=== PATIENT | male | born 1975 | race Caucasian/White ===

== ENCOUNTER 2024-12-11 09:43 | Inpatient (IN) | payer SELFPAY ==
--- NOTE | ~2024-12-11 | US_ITS ---
CLINICAL HISTORY: Bilateral symptomatic hydrocele PROCEDURES: 1. Limited preprocedure US of the scrotum. Permanent images saved in PACS. 2. US-guided drainage of right sided hydrocele. 3. Limited post procedure US of the scrotum. Permanent images saved in PACS. CLINICIANS: Tj Nazario NP Preprocedural imaging reviewed with Mis Nance MD. MEDICATIONS: -Lidocaine 1% 10 mL SQ -Antibiotics: None -For additional details, please see nursing flowsheet. COMPLICATIONS: None ESTIMATED BLOOD LOSS: < 5 ml CONTRAST: None SPECIMENS: A specimen was not sent for culture. MODERATE SEDATION TIME: 0 min PROCEDURE NOTE: The procedure, risks, benefits, and alternatives were carefully explained to the patient and written informed consent was obtained. The patient was placed supine on the US table. A timeout was performed. A limited US of the scrotum was performed to localize the fluid collection and choose appropriate needle entry and trajectory. The patient was prepped and draped in usual sterile fashion. The skin and subcutaneous tissues were anesthetized with lidocaine. Under US guidance, a 21-gauge needle was inserted into the fluid collection. 190 mL of yellow fluid was aspirated. The needle was removed and a sterile dressing was applied. A limited postprocedure ultrasound demonstrated bare to minimal residual fluid. The right scrotum was also significantly decreased in its overall size. The patient tolerated the procedure very well. US/US drain soft tissue w imaging Impression: US guided drainage of right hydrocele . Plan: Ultrasound-guided drainage of left hydrocele on a different day. This procedure was performed by Tj Nazario NP and supervised by Mis Nance MD. Electronically signed by: Td Nance MD 12/20/2024 05:52 PM EDT
--- NOTE | ~2024-12-11 | US_ITS ---
EXAMINATION: US SCROTUM CLINICAL INFORMATION: Scrotal pain and swelling. COMPARISON: None available. TECHNIQUE: A sonogram of the scrotum was performed assessing helms-scale appearance and color Doppler flow. Spectral Doppler analysis of the arterial and venous flow were performed in the testes bilaterally. FINDINGS: There is scrotal skin thickening, greater on the right. RIGHT: Right testicle measures 2.6 cm, volume 5 mL. No focal testicular parenchymal lesions are visualized. Spectral Doppler analysis of the arterial and venous flow is documented in the right testis. Right epididymis is not well-demonstrated. There is extra testicular multiloculated cystic structure with low-level internal echogenicity measuring 8.9 x 5.5 x 9.7 cm. There are images of the right scrotum that appear to show peristalsing bowel. LEFT: Left testicle measures 3.6 cm, volume 20 mL. No focal testicular parenchymal lesions are visualized. Spectral Doppler analysis of the arterial and venous flow is present in the left testis. Left epididymal head is unremarkable. There is a hydrocele. Left epididymal Doppler flow is present. There is cystlike fluid collection in the left scrotum measuring 4.0 x 8.1 x 2.8 cm US/US scrotum doppler IMPRESSION: Probable peristalsing bowel loops within the right scrotum suggesting a hernia. Multiloculated mildly complex cyst in the right scrotum measuring 8.9 x 5.5 x 9.7 cm the could represent spermatocele or septated chronic hydrocele. Infection is not ruled out. Small left hydrocele and cystlike structure measuring 4.0 x 8.1 x 2.8 cm could represent spermatocele, loculated hydrocele, infection is not ruled out. There is scrotal skin thickening, greater on the right, consistent with inflammation, edema, and/or infection. Electronically signed by: Dimitri Huber MD 12/11/2024 11:27 AM EDT
--- NOTE | ~2024-12-11 | CT_ITS ---
EXAMINATION: CT ABDOMEN AND PELVIS WITH CONTRAST CLINICAL INFORMATION: Diffuse lower abdominal pain and rigidity COMPARISON: None available. TECHNIQUE: Multidetector volumetric images were obtained from the superior aspect of the liver through the pubic symphysis following administration 85 mL of Omnipaque 350 intravenous contrast. Sagittal and coronal reformatted images were obtained on the technologist's workstation. Oral contrast: No This CT examination was performed using dose optimization techniques as appropriate, variously including the following: *Automated exposure control *Adjustment of mA and/or kV according to patient size (this includes techniques or standardized protocols for targeted exams where dose is matched to indication/reason for exam; i.e. extremities or head) *Use of iterative reconstruction technique DLP: 704 mGY*cm FINDINGS: LUNG BASES: The visualized lung bases are unremarkable. LIVER, GALLBLADDER, AND BILIARY TREE: The liver has nodular margin. It appears small with relative enlargement of caudate lobe. There is recannulization of the umbilical vein. There are also a few esophageal varicosities There is gallbladder wall thickening and pericholecystic fluid likely secondary to cirrhosis. PANCREAS: Unremarkable. SPLEEN: The spleen is bulky convex margins and measures 14 cm long axis. ADRENAL GLANDS: Unremarkable. KIDNEYS AND URETERS: There is vague hypodensity in lateral cortex of the mid right kidney and posterior inferiorly. There is nondilated. No stones are evident. BLADDER: Unremarkable. GASTROINTESTINAL TRACT: There is herniation of distal ileum into the right scrotum and inguinal canal, lateral to the epigastric vessels. Small bowel loops immediately proximal to the herniation are borderline dilated and fluid-filled. Bowel loops distal to the herniation or more decompressed. Colonic mucosa appears hypoattenuating. The lumen is decompressed. ABDOMINAL WALL: There is edema in the anterior subcutaneous soft tissues of the lower abdomen and pelvis. LYMPH NODES: Normal. VASCULAR: Splenic vein is enlarged and tortuous likely related collaterals. PELVIC VISCERA: There is scrotal skin thickening and bilateral hydroceles, likely related to ascites tracking from the pelvis into the scrotum through inguinal hernias. OSSEOUS STRUCTURES: Unremarkable. CT/CT abdomen pelvis w IV con IMPRESSION: There is an indirect hernia involving ileum into the right scrotum resulting in a partial low-grade obstruction. Cirrhosis and portal hypertension: There is a small nodular liver with moderate ascites. There is recanalization of the umbilical vein and esophageal varicosities. There is also splenomegaly and splenic vein collaterals. Ascites tracks into the scrotum bilaterally. Vague patchy hypodensity in the right kidney, correlate for signs symptoms of pyelonephritis. Colonic mucosa appears mildly prominent. This probably secondary to cirrhosis, ascites, and hypoalbuminemia. Correlate for signs symptoms of colitis. Fleischner guidelines were followed. Electronically signed by: Dimitri Huber MD 12/11/2024 01:22 PM EDT
--- NOTE | ~2024-12-11 | US_ITS ---
CLINICAL HISTORY: Bilateral symptomatic hydrocele. Patient receives regular drainage for therapeutic purposes. PROCEDURES: 1. Limited preprocedure US of the scrotum. Permanent images saved in PACS. 2. US-guided drainage of bilateral hydrocele. 3. Limited post procedure US of the scrotum. Permanent images saved in PACS. CLINICIANS: Tj Nazario NP Preprocedural imaging reviewed with Mis Nance MD. MEDICATIONS: -Lidocaine 1% 5 mL SQ -Antibiotics: None -For additional details, please see nursing flowsheet. COMPLICATIONS: None ESTIMATED BLOOD LOSS: < 5 ml CONTRAST: None SPECIMENS: A specimen was not sent for culture. MODERATE SEDATION TIME: 0 min PROCEDURE NOTE: The procedure, risks, benefits, and alternatives were carefully explained to the patient and written informed consent was obtained. The patient was placed supine on the US table. A timeout was performed. A limited US of the scrotum was performed to localize the fluid collections bilaterally and choose appropriate needle entry and trajectory. The patient was prepped and draped in usual sterile fashion. The skin and subcutaneous tissues were anesthetized with lidocaine. Under US guidance, a 21-gauge needle was inserted into each sides fluid collection. 200 mL from the right and 300 mL from the left of yellow fluid was aspirated. The needle was removed and a sterile dressing was applied. A limited postprocedure ultrasound demonstrated bare to minimal residual fluid. The scrotum was significantly decreased in its overall size. The patient tolerated the procedure very well. US/US drain soft tissue w imaging Impression: US guided drainage of bilateral hydrocele. This procedure was performed by Tj Nazario NP and supervised by Mis Nance MD. Electronically signed by: Td Nance MD 12/20/2024 05:52 PM EDT
--- NOTE | ~2024-12-11 | US_ITS ---
EXAMINATION: US SCROTUM CLINICAL INFORMATION: Scrotal pain and swelling. COMPARISON: None available. TECHNIQUE: A sonogram of the scrotum was performed assessing helms-scale appearance and color Doppler flow. Spectral Doppler analysis of the arterial and venous flow were performed in the testes bilaterally. FINDINGS: There is scrotal skin thickening, greater on the right. RIGHT: Right testicle measures 2.6 cm, volume 5 mL. No focal testicular parenchymal lesions are visualized. Spectral Doppler analysis of the arterial and venous flow is documented in the right testis. Right epididymis is not well-demonstrated. There is extra testicular multiloculated cystic structure with low-level internal echogenicity measuring 8.9 x 5.5 x 9.7 cm. There are images of the right scrotum that appear to show peristalsing bowel. LEFT: Left testicle measures 3.6 cm, volume 20 mL. No focal testicular parenchymal lesions are visualized. Spectral Doppler analysis of the arterial and venous flow is present in the left testis. Left epididymal head is unremarkable. There is a hydrocele. Left epididymal Doppler flow is present. There is cystlike fluid collection in the left scrotum measuring 4.0 x 8.1 x 2.8 cm US/US scrotum IMPRESSION: Probable peristalsing bowel loops within the right scrotum suggesting a hernia. Multiloculated mildly complex cyst in the right scrotum measuring 8.9 x 5.5 x 9.7 cm the could represent spermatocele or septated chronic hydrocele. Infection is not ruled out. Small left hydrocele and cystlike structure measuring 4.0 x 8.1 x 2.8 cm could represent spermatocele, loculated hydrocele, infection is not ruled out. There is scrotal skin thickening, greater on the right, consistent with inflammation, edema, and/or infection. Electronically signed by: Dimitri Huber MD 12/11/2024 11:27 AM EDT
[2024-12-11 10:01] VITALS: BP 146/70; PULSE 78; RESP 16; TEMP 36.3; O2SAT 98; BMI 25.8
--- NOTE | 2024-12-11 11:11 | ED_ITS ---
HPI - Male Genitourinary General Chief complaint: Urogenital-Male Stated complaint: personal issue Time Seen by Provider: 12/11/24 11:09 Source: patient Mode of arrival: ambulatory Limitations: no limitations History of Present Illness ED Provider: Rukhsana Smith PA-C HPI Narrative: 48-year-old male with medical history of type 2 diabetes, cirrhosis of the liver (patient on transplant list), inguinal hernia, hydrocele, presents to the ED due to 1 day of testicular pain and swelling. Patient reports last night after standing out to get out of bed he felt a sharp pulling sensation in his testicles and soon after started developing testicular swelling with right greater than left. Patient states he has had history of inguinal hernia, was seen in [facility] where he had to go under anesthesia for surgeon to push loop of bowel back in, did not require surgery at that time. Patient states he is in extreme pain, pain worse when he tries to sit up. Additionally patient has been experiencing abdominal pain that began after testicular swelling. Patient reports he does have dark colored urine without urinary symptoms. Denies chest pain, shortness of breath, nausea, vomiting, black/tarry stool, urinary symptoms Related Data Allergies Allergy/AdvReac Type Severity Reaction Status Date / Time Penicillins Allergy Anaphylaxis Verified 12/11/24 10:03 Review of Systems 2 Review of Systems: CONST: Negative for fever, body aches and chills. HENT: Negative for neck pain/stiffness, headache, congestion, sore throat, swelling. EYES: Negative for discharge/pain or vision changes. RESP: Negative for cough/hemoptysis and shortness of breath. CV: Negative chest pain, difficulty breathing, palpitations. ABD: Negative pain, nausea, vomiting. POS diffuse lower abd pain : Negative increase frequency, dysuria, blood in stool. POS testicular pain, dark urine MUSC: Negative for muscle aches, edema. SKIN: Negative rash, lesions/sores. NEURO: Negative headache, dizziness, weakness. [facility] Past Medical History Attestation statement: The following information was validated with the patient. 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, has not seen medical providers and mass.) Social History Social History Alcohol intake: former Smoked in Last 30 Days: No Use of substances other than those prescribed or required for medical reasons: No Advance Directives: No Advance Directives Information Provided: Yes Do you have a plan to hurt others: No Plan Physical Exam 2 Vital Signs: Vital Signs: Last Vital Signs Temp 98.1 F 12/11/24 12:08 Pulse 89 12/11/24 13:28 Resp 11 L 12/11/24 13:28 BP 121/66 12/11/24 13:28 Pulse Ox 97 12/11/24 13:28 O2 Del Method Room Air 12/11/24 13:28 BMI result Body Mass Index 25.8 GENERAL APPEARANCE: ?AxOx4, moderate discomfort, in position. HEENT: ?NC, AT. MMM. EOMI, R scleral icterus, L eye with prosthesis, oropharynx clear. NECK: ?Supple without lymphadenopathy.? No stiffness or restricted ROM. HEART:? Normal rate and regular rhythm, normal S1/S2, no m/r/g LUNGS:? CTAB, moving air well. No crackles or wheezes are heard. ABDOMEN: Abdomen rigid, with guarding, negative Gray's sign, difficult to tell if there is rebound tenderness due to guarding, TTP of diffuse lower abdomen, small umbilical hernia noted. BACK: No CVAT, no obvious deformity. : Bilateral testicular edema R>L, femoral pulses intact 2+ bilaterally, cremasteric reflex intact, no high-riding testicle noted, TTP of bilateral testicles EXTREMITIES: ?Without cyanosis, clubbing or edema. NEUROLOGICAL: ?Grossly nonfocal. Alert and oriented, moving all 4 extremities. Skin: ?Warm and dry without any rash. Medications Administered Generic Name Dose Route Start Last Admin Trade Name Freq PRN Reason Stop Dose Admin Potassium Chloride 10 meq in 100 mls @ 100 mls/hr 12/11/24 12:45 12/11/24 14:26 Potassium Chloride/H20 IV 12/11/24 16:44 100 mls/hr Q1H ELKIN Administration Discontinued Medications Generic Name Dose Route Start Last Admin Trade Name Freq PRN Reason Stop Dose Admin Hydromorphone HCl 0.5 mg 12/11/24 12:36 12/11/24 13:16 Hydromorphone Hcl 0.5 Mg/0.5 Ml Syringe IVPUSH 12/11/24 12:37 0.5 mg ONCE ONE Administration Protocol Magnesium Sulfate 2 gm in 50 mls @ 150 mls/hr 12/11/24 12:36 12/11/24 13:26 Magnesium Sulfate/H2o IV 12/11/24 12:55 150 mls/hr ONCE ONE Administration Lactated Ringer's 1,000 mls @ 999 mls/hr 12/11/24 13:08 12/11/24 14:33 Lr IV 12/11/24 14:08 Infused .Q1H1M ONE Infusion Iohexol 100 ml 12/11/24 12:56 12/11/24 12:57 Iohexol 350 Mg/Ml 100 Ml Infus..Btl IV 12/11/24 12:57 85 ml ONCE ONE Administration Morphine Sulfate 4 mg 12/11/24 11:47 12/11/24 11:53 Morphine Sulfate 4 Mg/Ml Cartridge IVPUSH 12/11/24 11:48 4 mg ONCE ONE Administration Protocol Ondansetron HCl 4 mg 12/11/24 12:48 12/11/24 13:13 Ondansetron Hcl 4 Mg/2 Ml Vial IVPUSH 12/11/24 12:49 4 mg ONCE ONE Administration Medical Decision Making Medical Decision Making MDM Narrative: 48-year-old male with medical history of type 2 diabetes, cirrhosis of the liver (patient on transplant list), inguinal hernia, hydrocele, presents to the ED due to 1 day of testicular pain and swelling. Patient reports last night after standing out to get out of bed he felt a sharp pulling sensation in his testicles and soon after started developing testicular swelling with right greater than left. Patient states he has had history of inguinal hernia, was seen in [facility] where he had to go under anesthesia for surgeon to push loop of bowel back in, did not require surgery at that time. Patient states he is in extreme pain, pain worse when he tries to sit up. Additionally patient has been experiencing abdominal pain that began after testicular swelling. Patient reports he does have dark colored urine without urinary symptoms. VSS, 146/70, pulse rate 78, oral temp 97.4?, O2 saturation 98% on room air. Physical exam reveals abdomen rigid, with guarding, negative Gray's sign, difficult to tell if there is rebound tenderness due to guarding, TTP of diffuse lower abdomen, small umbilical hernia noted. Bilateral testicular edema R>L, femoral pulses intact 2+ bilaterally, cremasteric reflex intact, no high-riding testicle noted, TTP of bilateral testicles Obtaining labs, CT abdomen and pelvis, scrotal ultrasound. Course 12:07- patient in pain, reports pain 11 on a scale of 10. Medicate with 4 mg IV morphine. Scrotal ultrasound reveals appropriate arterial and venous blood flow- less likley testicular torsion. Peristalsing bowel loops within the right scrotum, multiloculated mildly complex cyst in the right scrotum measuring at 8.9 x 5.5 x 9.7 cm, small left hydrocele with cyst-like structure. Scrotal skin thickening R>L Awaiting CT abdomen and lab results. 13:24- Labs reveal normocytic anemia with H&H at 11.9/35.5, sodium of 133, total bilirubin 6.9- patient states he has severe cirrhosis of the liver, is on transplantation list, total bilirubin likely elevated due to advanced cirrhosis, no asterixsis on physical exam, ammonia WNL. lactic acid of 3.9- patient does not meet sepsis protocol at this time, elevated lactic acid likely due to possible ischemia of inguinal hernia. Hypokalemia of 2.9, hypomagnesemia of 1.4, glucose of 411. UA reveals dark cloudy urine with 2+ urine protein, greater than a 1000 urine glucose, 3+ urine blood, greater than 20 RBCs per HPF, 11-20 WBCs per HPF with 6-10 squamous epithelial cells, and 3-5 hyaline casts, without urine bacteria. I reached out to surgery Dr. Wick to discuss possible incarcerated hernia and lactic acid of 3.9, after discussion we are currently awaiting CT abdomen results. Patient being repleted with IV potassium 10 mEq over 4 hours, 2 g magnesium, IV fluids. Patient is still with pain after medicating with morphine, patient dosed with 0.5 mg Dilaudid at 13:16. 13:27- CT abdomen/pelvis reveals indirect hernia involving ilium into the right scrotum resulting in partial low-grade obstruction, cirrhosis and portal hypertension, a few esophageal varices, moderate ascites tracking into the scrotum bilaterally, G hypodensity in the right kidney, prominent colonic mucosa most likely due to cirrhosis, ascites, hypoalbuminemia. Vital signs remained stable, normotensive 121/66, without tachycardic rate 89 beats per minute, afebrile at 98.1? oral temp, 97 O2 sat on room air. 15:29- EKG reveals normal sinus rhythm with right bundle branch block. No ST-elevation or depression, no T-wave inversions or abnormalities. Initial troponin at 10.0. Patient without chest pain, SOB, palpitations. Reflex lactic acid at 3.1, decrease from initial of 3.9. Patient does not meet sepsis criteria. After discussing case with Surgeon Dr. Wick and Hospitalist Dr. Lopez, patient to be admitted to medicine and followed by surgery. I discussed patients suspected hospital course and he is agreeable to admission. Differential Diagnosis Differential Diagnoses: The differential diagnosis associated with the presentation includes Testicular torsion Inguinal hernia Strangulated inguinal hernia Incarcerated inguinal hernia Acute abdomen Admission/Observation Consideration of admission/observation: Escalation of care including admission/observation considered Consult Healthcare Provider Management of the patient was discussed with: Rayon Winder (Surgery Dr. Wick) Lab Data MDM Lab Attestation statement: I reviewed the patient's lab results. 12/11/24 11:57 12/11/24 11:57 Labs: Lab Results 12/11/24 12/11/24 12/11/24 Range/Units 11:57 12:57 14:18 WBC 4.4 L (4.8-10.8) X10*3/uL RBC 3.98 L (4.60-5.80) X10*6/uL Hgb 11.9 L (14.0-18.0) g/dl Hct 35.5 L (42.0-52.0) % MCV 89.2 (80.0-98.0) fL MCH 29.9 (27.0-33.0) pg MCHC 33.5 (31.0-36.0) g/dl RDW 17.2 H (11.0-16.0) % Plt Count 122 L (160-400) X10*3/uL MPV 10.6 (9.4-12.4) fL Immature Gran % (Auto) 0.5 H (0.0-0.4) % Neut % (Auto) 75.6 H (45-73) % Lymph % (Auto) 11.0 L (20-40) % Wilcox % (Auto) 11.7 H (2-11) % Eos % (Auto) 0.7 (0-4) % Baso % (Auto) 0.5 (0-2) % Lymph # (Auto) 0.5 L (1.2-4.9) X10*3/uL Wilcox # (Auto) 0.5 (0.1-1.2) X10*3/uL Eos # (Auto) 0.0 (0.0-0.4) X10*3/uL Baso # (Auto) 0.0 (0.0-0.2) X10*3/uL Abs Immat Gran (auto) 0.02 (0.00-0.03) X10*3/uL Absolute Neuts (auto) 3.4 (2.0-8.3) x10*3/uL Absolute Nucleated RBC 0.000 (0.0-0.012) X10*3/uL Nucleated RBC % (auto) 0.0 (0.0-0.2) /100WBC Sodium 133 L (135-145) mmol/L Potassium 2.9 L* (3.3-5.1) mmol/L Chloride 95 L (96-108) mmol/L Carbon Dioxide 28 (22-29) mmol/L Anion Gap 13 (12-20) BUN 14 (9-16) mg/dL Creatinine 0.75 (0.5-1.4) mg/dL Estim Creat Clear Calc 119.1 Estimated GFR > 60 Random Glucose 411 H* (60-115) mg/dL Lactic Acid 3.9 H* (0.5-2.0) mmol/L Lactic Acid F/U @ 2Hr 3.1 H* (0.5-2.0) mmol/L Calcium 7.9 L (8.4-10.2) mg/dL Magnesium 1.4 L* (1.6-2.6) mg/dL Total Bilirubin 6.9 H (0.0-1.0) mg/dL AST 44 H (5-37) U/L ALT < 6 (0-40) U/L Alkaline Phosphatase 104 (39-117) U/L Ammonia 36 (13-55) umol/L Troponin I High Sens 10.0 (<3.5-35.0) ng/L Total Protein 7.0 (6.5-8.0) g/dL Albumin 2.3 L (3.5-5.0) g/dL Lipase 80 H (8-78) U/L Urine Color DK YELLOW Urine Appearance Cloudy Urine pH 5.5 (5.0-9.0) Ur Specific [place] 1.025 (1.005-1.025) Urine Protein 100 (2+) H (Neg-Trace) mg/dL Urine Glucose (UA) >=1000 H (Negative) mg/dL Urine Ketones Negative (Negative) mg/dL Urine Blood Large (3+) H (Negative) Urine Nitrite Negative (Negative) Ur Leukocyte Esterase Negative (Negative) Urine RBC >20 H (0-2) /HPF Urine WBC 11-20 H (0-5) /HPF Ur Squamous Epith Cells 6-10 (0-2) /HPF Urine Bacteria None Seen (None Seen) Hyaline Casts 3-5 (0-2) /LPF Independent Interpretation I performed an independent interpretation of an: EKG and Ultrasound Interpretation: I independently interpreted the EKG which reveals normal sinus rhythm, right bundle-branch block, no ST elevation/depression or T-wave abnormalities Vent. Rate : 87 BPM Atrial Rate : 87 BPM P-R Int : 122 ms QRS Dur : 128 ms QT Int : 486 ms P-R-T Axes : 43 21 -2 degrees QTcB Int : 584 ms Normal sinus rhythm Right bundle branch block Scrotal US- reveals appropriate arterial and venous blood flow Radiology Impression Discussion of test interpretation with radiology: I have reviewed the radiologist's reading. Radiologist Impression: Scrotal ultrasound FINDINGS: There is scrotal skin thickening, greater on the right. RIGHT: Right testicle measures 2.6 cm, volume 5 mL. No focal testicular parenchymal lesions are visualized. Spectral Doppler analysis of the arterial and venous flow is documented in the right testis. Right epididymis is not well-demonstrated. There is extra testicular multiloculated cystic structure with low-level internal echogenicity measuring 8.9 x 5.5 x 9.7 cm. There are images of the right scrotum that appear to show peristalsing bowel. LEFT: Left testicle measures 3.6 cm, volume 20 mL. No focal testicular parenchymal lesions are visualized. Spectral Doppler analysis of the arterial and venous flow is present in the left testis. Left epididymal head is unremarkable. There is a hydrocele. Left epididymal Doppler flow is present. There is cystlike fluid collection in the left scrotum measuring 4.0 x 8.1 x 2.8 cm US/US scrotum IMPRESSION: Probable peristalsing bowel loops within the right scrotum suggesting a hernia. Multiloculated mildly complex cyst in the right scrotum measuring 8.9 x 5.5 x 9.7 cm the could represent spermatocele or septated chronic hydrocele. Infection is not ruled out. Small left hydrocele and cystlike structure measuring 4.0 x 8.1 x 2.8 cm could represent spermatocele, loculated hydrocele, infection is not ruled out. There is scrotal skin thickening, greater on the right, consistent with inflammation, edema, and/or infection. Electronically signed by: Dimitri Huber MD 12/11/2024 11:27 AM EDT RP Dictated By: Dimitri Huber MD Signed By: <Electronically signed by Dimitri Huber MD in OV> 12/11/[address] abdominal/pelvis IMPRESSION: There is an indirect hernia involving ileum into the right scrotum resulting in a partial low-grade obstruction. Cirrhosis and portal hypertension: There is a small nodular liver with moderate ascites. There is recanalization of the umbilical vein and esophageal varicosities. There is also splenomegaly and splenic vein collaterals. Ascites tracks into the scrotum bilaterally. Vague patchy hypodensity in the right kidney, correlate for signs symptoms of pyelonephritis. Colonic mucosa appears mildly prominent. This probably secondary to cirrhosis, ascites, and hypoalbuminemia. Correlate for signs symptoms of colitis. Fleischner guidelines were followed. Electronically signed by: Dimitri Huber MD 12/11/2024 01:22 PM EDT RP Dictated By: Dimitri Huber MD Signed By: <Electronically signed by Dimitri Huber MD in OV> 12/11/24 1322 Independent Historian Clinical information obtained from an independent historian. History obtained from or confirmed by: Other (Sister called on the phone to corroborate history) External Record Review External record reviewed: Inpatient record, Office record and Outpatient record Chronic Conditions Patient?s care impacted by: Other (Cirrhosis, alcohol use disorder in remission, type 2 diabetes,) Critical Care Time Critical Care Time Total Critical Care Time: 67 Attestation: I personally provided 67 minutes of critical care time for this patient, exclusive of separately billable procedures and time spent by other providers. This time was required for the management of inguinal hernia, electrolyte derangement and included initial evaluation and frequent reassessments, review and interpretation of diagnostic studies, he had hemodynamic and electrolyte management, coordination and communication with consultants and nursing staff, ongoing documentation and complex medical decision-making. Discharge Plan Discharge Print Language: Zambian
[2024-12-11 12:07] LABS: MANUAL DIFF FLAG NO
[2024-12-11 12:08] VITALS: BP 124/70; PULSE 84; RESP 12; TEMP 36.7; O2SAT 94
[2024-12-11 12:11] LABS: Hematocrit 35.5 % (42.0-52.0); Hemoglobin 11.9 g/dl (14.0-18.0); Imm Gran Abs Auto 0.02 X10*3/uL (0.00-0.03); Imm Gran Pct Auto 0.5 % (0.0-0.4); Lymphocytes Absolute Auto 0.5 X10*3/uL (1.2-4.9); Mean Corpuscular HGB Conc 33.5 g/dl (31.0-36.0); Mean Corpuscular Hemoglobin 29.9 pg (27.0-33.0); Mean Corpuscular Volume 89.2 fL (80.0-98.0); NRBC Abs Auto 0.000 X10*3/uL (0.0-0.012); NRBC Pct Auto 0.0 /100WBC (0.0-0.2); Platelet Count 122 X10*3/uL (160-400); Red Blood Count 3.98 X10*6/uL (4.60-5.80); White Blood Count 4.4 X10*3/uL (4.8-10.8)
[2024-12-11 12:17] LABS: Ammonia 36 umol/L (13-55)
--- OUTSIDE RECORDS SUMMARY | 2024-12-11 12:19 | XMS_ITS | Patient Health Record ---
Author Organization [facility] Address [address] [place] [address] Care Team Providers Care Roofing Supervisor Name Role Phone Migration, Provider Unavailable Unavailable Allergies Allergen (clinical drug ingredient) Drug/Non Drug Allergy documented on EMR Reaction Allergy Type Onset Date Status PCN (uncoded) pt almost from Allergy Active Reason For Referral No Information Medications Medication SIG (Take, Route, Frequency, Duration) Notes Start Date End Date Status Omeprazole 40 MG 1 CAP(S) ORALLY ONCE A DAY for 30 DAY(S) *Please review and pick correct strength-formulation from [employer] options. If intended option is not shown, discontinue and re-order from Quick Search* 01/09/2009 Active Nystatin-Triamcinol one [id number] UNIT/GM 1 goldie applied topically TID for 30 day(s) 01/09/2009 Active Diflucan 150 MG 1 TAB NOW AND REPEAT 1 TAB. IN 72 HOURS *Please review and pick correct strength-formulation from [employer] options. If intended option is not shown, discontinue and re-order from Quick Search* 01/09/2009 Active Encounters Encounter Location Date Provider Diagnosis [facility] [address] [place] [address] 06/24/2024 Provider Migration Tinea 110.9 Assessments Encounter Date Diagnosis (ICD Code) Assessment Notes Treatment Notes Treatment Clinical Notes Section Notes 06/24/2024 Tinea (ICD9-CM - 110.9) Plan Of Treatment No Information
--- OUTSIDE RECORDS SUMMARY | 2024-12-11 12:19 | XMS_ITS ---
Author Organization [facility] Address [address] [place] [address] Care Team Providers Care Ground Worker Name Role Phone Unavailable Unavailable Unavailable
--- OUTSIDE RECORDS SUMMARY | 2024-12-11 12:19 | XMS_ITS | Clinical Summary ---
Author Organization [facility] Address [address] [place] [address] Phone Care Team Providers Care Rn Maternal Child Name Role Phone Pcp, None MD Primary Care Provider Unavailabl e Allergies Active Allergy Reactions Criticality Noted Date Comments Penicillins Anaphylaxis High 11/26/2023 Medications Medication Sig Dispensed Refills Start Date End Date Status hydrOXYzine (Vistaril) 50 MG capsule Take 1 capsule (50 mg total) by mouth 4 (four) times a day as needed for itching 30 capsule 06/09/2024 Active EPINEPHrine (EpiPEN 2-STEPHAN) 0.3 MG/0.3ML Inject 0.3 mL (0.3 mg total) as directed 2 (two) times a day Inject IM into thigh, may repeat once in 3 mins if not improved Go to the closest ER immediately after taking this medication. 2 each 06/09/2024 Active Active Problems Problem Noted Date Diagnosed Date Hypokalemia 04/24/2024 Social History Tobacco Use Types Packs/Day Years Used Date Smoking Tobacco: Never Smokeless Tobacco: Never Tobacco Cessation:Counseling Given: Not Answered Alcohol Use Standard Drinks/Week Comments Not Currently 0 (1 standard drink = 0.6 oz pur e alcohol) quit December 2023 (vodka) [id number] Health Literacy Answer Date Recor ded How often do you need to hav e someone help you when you read instructions, pamphlets, or other written material from your doctor or pharmacy? Never 04/25/2024 [facility] Utilities Answer Date Recorded In the past 12 months has e [employer], gas, oil, or water [employer] threatened to shut off services in your home? No 04/25/2024 Humiliation, Afraid, Rape, and Kick questionnair e Answer Date Recorded Within the last year, have y ou been afraid of your partner or ex-partner? No 04/25/2024 Within the last year, have y ou been humiliated or emotionally abused in other ways by your partner or ex-partner? No Within the last year, have y ou been kicked, hit, slapped, or otherwise physically hurt by your partner or ex-partner? No 04/25/2024 Within the last year, have y ou been raped or forced to have any kind of sexual activity by your partner or ex-partner? No 04/25/2024 Social Connection and Isolat ion Panel [NHANES] Answer Date Recorded In a typical week, how many times do you talk on the phone with family, friends, or neighbors? More than three times a week 04/25/2024 How often do you get togethe r with friends or relatives? More than three times a week 04/25/2024 How often do you attend chur or latter day services? Patient declined 04/25/2024 Do you belong to any clubs o r organizations such as adventism groups, unions, fraternal or athletic groups, or school groups? Patient declined 04/25/2024 How often do you attend meet ings of the clubs or organizations you belong to? Patient declined 04/25/2024 Are you , , di vorced, , never , or living with a partner? Never 04/25/2024 AUDIT-C Answer Date Recorded Q1: How often do you have a drink containing alc ohol? Monthly or less 04/25/2024 Q2: How many drinks containi ng alcohol do you have on a typical day when you are drinking? Patient declined 04/25/2024 Q3: How often do you have si x or more drinks on one occasion? Patient declined 04/25/2024 Overall Financial Resource Strain (CARDIA) Answe r Date Recorded How hard is it for you to pa y for the very basics like food, housing, medical care, and heating? Not hard at all 04/25/2024 PHQ-2 Answer Date Recorded PHQ 2 Total 0 04/25/2024 [facility] - Occupational Stress Questionnaire Answer Date Recorded Do you feel stress - tense, restless, nervous, or anxious, or unable to sleep at night because your mind is troubled all the time - these days? Not at all 04/25/2024 Exercise Vital Sign Answer Date Recorde d On average, how many days pe r week do you engage in moderate to strenuous exercise (like a brisk walk)? 0 days 04/25/2024 On average, how many minutes do you engage in exercise at this level? 0 min 04/25/2024 Hunger Vital Sign Answer Date Recorded Within the past 12 months, y ou worried that your food would run out before you got the money to buy more. Never true 04/25/20 24 Within the past 12 months, t he food you bought just didn't last and you didn't have money to get more. Never true 04/25/2024 PRAPARE - Transportation Answer Date Re corded In the past 12 months, has l ack of transportation kept you from medical appointments or from getting medications? No 04/16 In the past 12 months, has l ack of transportation kept you from meetings, work, or from getting things needed for daily living? No 04/25/2024 Housing Stability Vital Sign Answer Sergei e Recorded In the last 12 months, was t here a time when you were not able to pay the mortgage or rent on time? No 04/25/2024 In the past 12 months, how m any times have you moved where you were living? 0 04/25/2024 [facility] time [facility] the [facility], were you homeless or living in a fpc (including now)? No 04/25/2024 Sex and Gender Information Value Date Recorded Sex Assigned at Not on file Gender Identity Not on file Sexual Orientation Not on file Last Filed Vital Signs Vital Sign Reading Time Taken Comments Blood Pressure 134/75 06/09/2024 12:00 PM EST Pulse 104 06/09/2024 12:00 PM EST Temperature 37 C (98.6 F) 06/09/2024 8:00 AM EST Respiratory Rate 18 06/09/2024 12:00 PM EST Oxygen Saturation 97% 06/09/2024 12:00 PM EST Inhaled Oxygen Concentration - - Weight 79.4 kg (175 lb) 06/09/2024 11:42 AM EST Height 175.3 cm (5' 9 ) 04/25/2024 3:00 AM EST Body Mass Index 25.84 04/25/2024 3:00 AM EST Plan of Treatment Not on file Advance Directives * Full Code (Latest Code Status on File) Date Activated Date Inactivated Comments 04/24/2024 8:46 PM 06/09/2024 4:38 AM * Full Code Date Activated Date Inactivated Comments 04/24/2024 4:15 PM 04/24/2024 8:46 PM Care Teams Rn Maternal Child Relationship Specialty Start Date End Date Pcp, Bria, PCP - General 12/30/22
--- OUTSIDE RECORDS SUMMARY | 2024-12-11 12:20 | XMS_ITS | Clinical Summary ---
Author Organization [facility] Address [address] [place] [address] Care Team Providers Care Steam Room Attendant Name Role Phone Patient, Has No Pcp Or Ref Primary Care Provider Unavailable Allergies Active Allergy Reactions Criticality Noted Date Comments Penicillins Anaphylaxis High 11/26/2023 Medications EPINEPHrine (EPIPEN) 0.3 mg/0.3 mL injection syringe Inject 0.3 mg into the outer thigh muscle as directed as needed for anaphylaxis. Active Active Problems Problem Noted Date Diagnosed Date Type 2 diabetes mellitus wit hout complication, without long-term current use of insulin 08/27/2024 Iron deficiency anemia 08/25/2024 Bilateral lower extremity edema 08/24/2024 Abdominal distention 08/24/2024 Scrotal swelling 08/24/2024 Alcoholic cirrhosis 08/24/2024 Ascites 08/24/2024 Bilateral hydrocele 08/24/2024 Hyponatremia 08/24/2024 Hyperbilirubinemia 08/24/2024 Pancytopenia 08/24/2024 Normocytic normochromic anemia 08/24/2024 Portal hypertension 08/24/2024 Anasarca 08/24/2024 Right bundle branch block 08/24/2024 Prolonged QT interval 08/24/2024 Resolved Problems Problem Noted Date Diagnosed Date Resolved Date Hypokalemia 08/24/2024 08/27/2024 Hypomagnesemia 08/24/2024 08/25/2024 Social History Tobacco Use Types Packs/Day Years Used Date Smoking Tobacco: Never Smokeless Tobacco: Never Tobacco Cessation:Counseling Given: Not Answered Alcohol Use Standard Drinks/Week Comments Not Currently 0 (1 standard drink = 0.6 oz pur e alcohol) Sober since December Sex and Gender Information Value Date Recorded Sex Assigned at Male 08/23/2024 5:47 PM EDT Legal Sex Male 5:44 PM EDT Gender Identity Male 08/23/2024 5:47 PM EDT Sexual Orientation Not on file Last Filed Vital Signs Vital Sign Reading Time Taken Comments Blood Pressure 112/68 08/27/2024 3:36 PM EDT Pulse 87 08/27/2024 10:47 AM EDT Temperature 36.6 C (97.9 F) 08/27/2024 3:36 PM EDT Respiratory Rate 18 08/27/2024 10:4 7 AM EDT Oxygen Saturation 93% 08/27/2024 3:36 PM EDT Inhaled Oxygen Concentration - - Weight 88.3 kg (194 lb 10.7 oz) 08/27/2024 6:00 AM EDT Height 175.3 cm (5' 9 ) 08/25/2024 2:32 AM EDT Body Mass Index 28.75 08/25/2024 2:32 AM EDT Plan of Treatment Health Maintenance Due Date Last Done Comments Cologuard 1974 Colon Cancer Screening 1974 Colonoscopy 1974 FOBT / Fit Test 1974 HIV Screening 1974 Hepatitis C Screening 1974 Sigmoidoscopy 1974 Ophthalmology Exam 1984 Urine Microalbumin 1984 Hepatitis B Vaccines (1 of 3 - 19+ 3-dose series) 1993 Pneumococcal Vaccine: Pediat corie (0-5 Years) and At-Risk Patients (6-50 Years) (1 of 2 - PCV) 1993 DTaP,Tdap,and Td Vaccines (1 - Tdap) 1996 COVID-19 Vaccine ( - 2023-2 5 season) 2024 Alcohol/Substance Use Screening 05/17/2024 Depression Screening and Follow-Up 05/17/2024 Social Drivers of Health Lisa ual Screening 05/17/2024 Influenza Vaccine (#1) 2025 Hemoglobin A1C 02/26/2025 08/27/2024 Basic Metabolic Panel 08/27/2025 08/27/2024 , 08/26/2024, 08/25/2024, Additional history exists RSV Vaccine (60+ years old a nd patients) (1 - 1-dose 75+ series) 2049 Procedures * Due to [place] Send[employer] law, this organization might not be sharing negative HIV tests. Procedure Name Priority Date/Time Associated Diagnosis Comments COMPREHENSIVE METABOLIC PANEL Routine 08/27/2024 6:23 AM EDT HEMOGLOBIN A1C Timed 08/27/2024 6:20 AM EDT from Last 3 Months or Most Recently Relevant to Health Maintenance Results * Due to [place] [employer] law, this organization might not be sharing negative HIV tests. * (ABNORMAL) Comprehensive Metabolic Panel (08/27/2024 6:23 AM EDT) NA 132(L) 135 - 145 mmol/L 08/27/2024 7:20 AM EDT [facility] K 3.5 3.5 - 5.3 mmol/L 08/27/2024 7:20 AM EDT [facility] Cl 100 98 - 107 mmol/L 08/27/2024 7:20 AM EDT [facility] CO2 23 22 - 32 mmol/L 08/27/2024 7:20 AM EDT [facility] Anion Gap 9 5 - 15 08/27/2024 7:20 AM EDT [facility] Glucose 422(H) 65 - 99 mg/dL 08/27/2024 7:20 AM EDT [facility] Creatinine 0.75 0.60 - 1.30 mg/dL 08/27/2024 7:20 AM EDT [facility] Calcium 7.5(L) 8.6 - 10.5 mg/dL 08/27/2024 7:20 AM EDT [facility] Total Protein 5.9(L) 6.0 - 8.0 g/dL 08/27/2024 7:20 AM EDT [facility] Albumin 2.0(L) 3.5 - 5.2 g/dL 08/27/2024 7:20 AM EDT [facility] Bilirubin, Total 4.1(H) 0.2 - 1.2 mg/dL 08/27/2024 7:20 AM EDT [facility] Alkaline Phosphatase 99 35 - 129 U/L 08/27/2024 7:20 AM EDT [facility] AST 41(H) 10 - 40 U/L 08/27/2024 7:20 AM EDT [facility] ALT 11 10 - 40 U/L 08/27/2024 7:20 AM EDT [facility] BUN 6(L) 7 - 23 mg/dL 08/27/2024 7:20 AM EDT [facility] eGFR >90 >=60 mL/min/1 .73m2 08/27/2024 7:20 AM EDT [facility] Comment:The estimated glomer ular filtration rate (eGFR) is calculated using a new formula developed by the NKF-ASN task force to eliminate race-based correction factors. The new formula uses serum/plasma creatinine, age, and gender to determine eGFR. A value below 60mls/min might indicate kidney disease and will be flagged. For additional information, see Melgoza et al, Am J Kidney Dis. 2021;79(2):268- 288, A Unifying Approach for GFR estimation: Recommendations of the NKF-ASN Task Force on Reassessing the Inclusion of Race in Diagnosing Kidney Disease . Globulin, Total 3.9 2.1 - 4.2 g/dL 08/27/2024 7:20 AM EDT [facility] A/G Ratio 0.5(L) 1.5 - 3.0 08/27/2024 7:20 AM EDT [facility] Blood Structure of peripheral vein / Unknown Venipuncture / Unknown 08/27/2024 6:23 AM EDT 08/27/2024 6:48 AM EDT us Clotilde Woodruff MD LAB BLOOD ORDERABLES Final Resul t Performing Organization Address City/[facility]/ZIP Co de Phone Number [facility] [address] [place] [phone], * (ABNORMAL) Hemoglobin A1c (08/27/2024 6:20 AM EDT) Hemoglobin A1c 7.5(H) <=5.6 % 08/27/2024 1:42 PM EDT [facility] [employer] [facility] Comment: Patients >=18 years: 5.7-6.4% Increased risk for diabetes (prediabetes) >= 6.5% Diabetes Patients <18 years: Hemoglobin A1c criteria for diagnosing diabetes have not been established for this age range. Estimated Average Glucose 169 mg/dL 08/27/2024 1:42 PM EDT [facility] Blood Structure of peripheral vein / Unknown Venipuncture / Unknown 08/27/2024 6:20 AM EDT 08/27/2024 8:36 AM EDT us Clotilde Woodruff MD LAB BLOOD ORDERABLES Final Resul t Performing Organization Address City/[facility]/ZIP Co de Phone Number [facility] Walk-in Appointment SchedulerZila [facility] [address] [place] [phone], from Last 3 Months or Most Recently Relevant to Health Maintenance Advance Directives * Full Code (Latest Code Status on File) Date Activated Date Inactivated Comments 08/24/2024 11:50 PM 08/27/2024 6:38 PM Care Teams Steam Room Attendant Relationship Specialty Start Date End Date Patient, Has No Pcp Or Ref DO NOT EDIT THIS RECORD VIA [facility] ON THE [facility]Y PCP - General Inspector Set Up And Lay Out 08/23/24
[2024-12-11 12:31] LABS: Alanine Aminotransferase < 6 U/L (0-40); Albumin Level 2.3 g/dL (3.5-5.0); Alkaline Phosphatase 104 U/L (39-117); Anion Gap 13 (12-20); Aspartate Amino Transferase 44 U/L (5-37); Blood Urea Nitrogen 14 mg/dL (9-16); Calcium 7.9 mg/dL (8.4-10.2); Carbon Dioxide 28 mmol/L (22-29); Chloride 95 mmol/L (96-108); Creatinine Clr Calc Pharmacy 119.1; Estimated Glomerular Filt Rate > 60; Lipase 80 U/L (8-78); Magnesium 1.4 mg/dL (1.6-2.6); Potassium 2.9 mmol/L (3.3-5.1); Sodium 133 mmol/L (135-145); Total Protein 7.0 g/dL (6.5-8.0)
[2024-12-11] MEDS: iohexoL 350 MG/ML 100 ML INFUS..BTL IV (12:57)
[2024-12-11 13:04] LABS: Appearance Urine Cloudy; Glucose Urine UA >=1000 mg/dL (Negative); PH 5.5 (5.0-9.0); Specific Gravity - Urine 1.025 (1.005-1.025); UMIC TRIGGER UACC YES
[2024-12-11 13:10] LABS: UACC Culture Trigger YES
--- NOTE | 2024-12-11 13:12 | ECG_ITS ---
Test Reason : electrolyte abnormality Blood Pressure : */* mmHG Vent. Rate : 87 BPM Atrial Rate : 87 BPM P-R Int : 122 ms QRS Dur : 128 ms QT Int : 486 ms P-R-T Axes : 43 21 -2 degrees QTcB Int : 584 ms Normal sinus rhythm Right bundle branch block Abnormal ECG No previous ECGs available Referred By: Luis Milian Electronically Signed By: ROXANNA GROSS MD
[2024-12-11] MEDS: Potassium Chloride/H20 10 MEQ/100 ML PIGGYBACK 100 MEQ IV ×4 (13:17→17:54)
[2024-12-11] MEDS: Magnesium Sulfate/H2O 2 GM/50 ML PIGGYBACK IV (13:26)
[2024-12-11 13:28] VITALS: BP 121/66; PULSE 89; RESP 11; O2SAT 97
[2024-12-11] MEDS: Lactated Ringers 1,000 ML 999 ML IV (13:28)
[2024-12-11 13:54] LABS: Troponin-I High Sensitivity 10.0 ng/L (<3.5-35.0)
[2024-12-11 14:06] LABS: Reflex Lactate? Lactic Acid Added
[2024-12-11 14:40] LABS: ~Lactic Acid-LAB USE ONLY 3.1 mmol/L (0.5-2.0)
--- NOTE | 2024-12-11 15:29 | PM.IMHP ---
History of Present Illness Date of Service: 12/11/24 Chief Complaint: Testicular pain This is a 48-year-old male with pertinent history of alcohol use disorder, now in remission with alcoholic cirrhosis, insulin-dependent diabetes mellitus who presents to the emergency department for evaluation of testicular pain. Patient states his symptoms started on the day of presentation. He felt a sharp pain in his bilateral testicles and noticed testicular swelling. Does have a history of inguinal hernia and hydrocele. Pain is worse in upright position. No fever, chills, nausea, vomiting. Denies chest pain, palpitations, changes in bowel habits In the emergency department, imaging with probable bowel loops within the right scrotum, multiloculated complex cyst in the right scrotum and small left hydrocele with cyst-like structure measuring 4 x 8 x 2.8 cm. General surgery was consulted who requested admission to medicine team. Review of Systems Constitutional: Constitutional: Reports no additional constitutional complaints Cardiovascular: Cardiovascular: Reports no additional cardiovascular complaints Respiratory: Respiratory: Reports no additional respiratory complaints Gastrointestinal: Gastrointestinal: Reports no additional gastrointestinal complaints Genitourinary: Genitourinary: Reports scrotal swelling and Reports testicular pain REPLACED BY [facility] Medical History (Updated 12/11/24 @ 15:50 by Marian Lopez MD) Insulin dependent type 2 diabetes mellitus Alcoholic cirrhosis Pertinent family history: No family history of early CAD Social History Alcohol intake: former Smoked in Last 30 Days: No Use of substances other than those prescribed or required for medical reasons: No Advance Directives: No Advance Directives Information Provided: Yes Do you have a plan to hurt others: No Plan Meds Allergies Allergy/AdvReac Type Severity Reaction Status Date / Time Penicillins Allergy Anaphylaxis Verified 12/11/24 10:03 Active Medications: Current Medications Potassium Chloride (Potassium Chloride/H20) 10 meq in 100 mls @ 100 mls/hr IV Q1H ELKIN Stop: 12/11/24 16:44 Last Admin: 12/11/24 14:26 Dose: 100 mls/hr Home Medications ?Medication ?Instructions ?Recorded ?Confirmed ?Last Taken ?Type insulin glargine 100 unit/mL (3 unit subcut 12/11/24 Unknown History mL) subcutaneous pen (Basaglar KwikPen U-100 Insulin) Physical Exam Vital Signs and Narrative: Vital Signs: Last Vital Signs Temp 98.1 F 12/11/24 12:08 Pulse 89 12/11/24 13:28 Resp 11 L 12/11/24 13:28 BP 121/66 12/11/24 13:28 Pulse Ox 97 12/11/24 13:28 O2 Del Method Room Air 12/11/24 13:28 BMI result Body Mass Index 25.8 Middle-aged male lying in bed in distress Neck supple, no JVD Regular rate and rhythm, S1-S2 heard Regular breath sounds bilaterally, no wheezing or crackles appreciated Abdomen with mild distention, no tenderness, no guarding Bilateral testicular swelling with tenderness Patient is awake, alert and oriented to self, place, time and person ; no focal motor deficit Psych: Normal mood Results Labs 12/11/24 11:57 12/11/24 11:57 Labs: Laboratory Results - last 24 hr 12/11/24 12/11/24 12/11/24 11:57 12:57 14:18 MCV 89.2 MCH 29.9 MCHC 33.5 RDW 17.2 H Plt Count 122 L MPV 10.6 Immature Gran % (Auto) 0.5 H Neut % (Auto) 75.6 H Lymph % (Auto) 11.0 L [place] % (Auto) 11.7 H Eos % (Auto) 0.7 Baso % (Auto) 0.5 Lymph # (Auto) 0.5 L [place] # (Auto) 0.5 Eos # (Auto) 0.0 Baso # (Auto) 0.0 Abs Immat Gran (auto) 0.02 Absolute Neuts (auto) 3.4 Absolute Nucleated RBC 0.000 Nucleated RBC % (auto) 0.0 Anion Gap 13 Estim Creat Clear Calc 119.1 Estimated GFR > 60 Random Glucose 411 H* Lactic Acid 3.9 H* Lactic Acid F/U @ 2Hr 3.1 H* Calcium 7.9 L Magnesium 1.4 L* Total Bilirubin 6.9 H AST 44 H ALT < 6 Alkaline Phosphatase 104 Ammonia 36 Total Protein 7.0 Albumin 2.3 L Lipase 80 H Urine Color DK YELLOW Urine Appearance Cloudy Urine pH 5.5 Ur Specific Cla[place] 1.025 Urine Protein 100 (2+) H Urine Glucose (UA) >=1000 H Urine Ketones Negative Urine Blood Large (3+) H Urine Nitrite Negative Ur Leukocyte Esterase Negative Urine RBC >20 H Urine WBC 11-20 H Ur Squamous Epith Cells 6-10 Urine Bacteria None Seen Hyaline Casts 3-5 Imaging Radiologist's Impressions: Impressions Scrotum Ultrasound 12/11/24 10:30 IMPRESSION: Probable peristalsing bowel loops within the right scrotum suggesting a hernia. Multiloculated mildly complex cyst in the right scrotum measuring 8.9 x 5.5 x 9.7 cm the could represent spermatocele or septated chronic hydrocele. Infection is not ruled out. Small left hydrocele and cystlike structure measuring 4.0 x 8.1 x 2.8 cm could represent spermatocele, loculated hydrocele, infection is not ruled out. There is scrotal skin thickening, greater on the right, consistent with inflammation, edema, and/or infection. Electronically signed by: Dimitri Huber MD 12/11/2024 11:27 AM EDT RP Abdomen/Pelvis CT 12/11/24 11:45 IMPRESSION: There is an indirect hernia involving ileum into the right scrotum resulting in a partial low-grade obstruction. Cirrhosis and portal hypertension: There is a small nodular liver with moderate ascites. There is recanalization of the umbilical vein and esophageal varicosities. There is also splenomegaly and splenic vein collaterals. Ascites tracks into the scrotum bilaterally. Vague patchy hypodensity in the right kidney, correlate for signs symptoms of pyelonephritis. Colonic mucosa appears mildly prominent. This probably secondary to cirrhosis, ascites, and hypoalbuminemia. Correlate for signs symptoms of colitis. Fleischner guidelines were followed. Electronically signed by: Dimitri Huber MD 12/11/2024 01:22 PM EDT RP Assessment and Plan (1) Inguinal hernia: Status: Acute (2) Scrotal cyst: Status: Acute (3) Hypokalemia: Status: Acute Plan This is a 48-year-old male with pertinent history of alcohol use disorder, now in remission with alcoholic cirrhosis, insulin-dependent diabetes mellitus who presents to the emergency department for evaluation of testicular pain. #. Bilateral Testicular pain: Imaging concerning for indirect hernia involving ileum into right scrotum resulting in partial low-grade obstruction. Also multiloculated complex cyst in the right scrotum and left-sided hydrocele with cyst. General surgery and Urology eval. Initiated empiric IV abx #. Alcoholic cirrhosis: Continue home diuretics #. Hypokalemia and hypomagnesemia: Repleted #. Insulin-dependent type 2 diabetes mellitus: Initiating Accu-Cheks sliding scale insulin every 6 hours #. Acute lactic acidosis: Due to metformin use. No sepsis Med rec pending DVT prophylaxis: SCDs Full code Admit as inpatient and will require two night minimum hospital stay for evaluation of indirect hernia, scrotal cyst, IV antibiotics (as above), which is not possible in a lesser acute setting. Surgical consult pending Quality Stroke Does the patient have a stroke diagnosis?: No VTE Prior VTE?: No VTE Risk Level:: Medical - moderate - high VTE Device Contraindication: N/A - Device Ordered VTE Drug Contraindication: Treatment Not Indicated
[2024-12-11 15:49] LABS: Glucose, Whole Blood 363 mg/dL (60-115)
--- NOTE | 2024-12-11 16:07 | PHA.PROG ---
Admission Date/Time: Indication: SKIN AND SKIN STRUCTURE Weight in k.379 kg Adjusted body weight in Kg: [place] body weight in Kg: Obesity Dosing Indication % IBW: Serum Creatinine - Last 168 Hours 12/11/24 11:57 Creatinine 0.75 Estimated CrCl and GFR - Last 168 Hours 12/11/24 11:57 Estim Creat Clear Calc 119.1 Estimated GFR > 60 Vancomycin Loading Dose: 2000 MG Current Vancomycin Dosing Regimen: 1250 MG Q 12 HOURS Vancomycin Monitoring using AUC goal of 400 - 600 range with trough as surrogate marker: Date and Time for next Vancomycin Level to be drawn: 12/12/1499 Pharmacist Comments on Vancomycin Plan: PREDICTED AUC OF 505 Vancomycin dosing will take advantage of [employer] as a clinical decision support tool that uses Bayesian modeling to calculate individual patient's pharmacokinetic parameters and forecast the patient's drug concentration time course with the target goal AUC 24 range of 400 - 600 mg/L/hr.
[2024-12-11 16:21] LABS: Reflex Lactate? 2 Y
[2024-12-11 17:24] VITALS: BP 113/53; PULSE 82; RESP 11; TEMP 36.7; O2SAT 97
[2024-12-11 17:34] LABS: ~Lactic Acid-LAB USE ONLY 3.0 mmol/L (0.5-2.0)
--- NOTE | 2024-12-11 17:44 | PHA.MEDREC ---
Addendum entered by Radha Rosario formerly [facility] 12/11/24 18:01: REVIEWED BY PHARMACIST Original Note: Pharmacy Consult ? Medication Reconciliation Pharmacy has completed the medication reconciliation. Spoke with pt and he seems non compliant with his medications. Per pt he is taking: Furosemide 40mg 1 BID; pt pharmacy it was [facility] at ([facility]) confirmed the pt last got that 08/29 for 30, Metformin 500mg tabs 1 BID; despite claims and pharmacy confirming the pt has not gotten those filled since 09/22 got 30 days and Basaglar 100un; pt states he takes it QIDACHS per a sliding scale, pt pharmacy ([facility]) confirmed that was written 18 units at bedtime and they have no claims for any short acting insulins being filled (I also called [facility] and [facility] and they have no claims for any insulins being filled at their facilities).
[2024-12-11 18:21] VITALS: BP 120/74; PULSE 89; RESP 12; O2SAT 95
[2024-12-11] MEDS: vancomycin/NS 2,000 MG/500 ML PLAST..BAG 250 MG IV (19:33)
[2024-12-11 19:40] LABS: Glucose, Whole Blood 241 mg/dL (60-115)
--- NOTE | 2024-12-11 21:06 | PM.CNGS ---
History of Present Illness Consult details Consult date: 12/11/24 Narrative: The patient is a 48-year-old male with a complicated past medical history significant for type 2 insulin diabetes alcoholic cirrhosis who lives in [place] and has his main medical team in [place]. He says that he is trying to get on the liver transplant list as his doctor's there say that is his only hope to improve his situation. He does have a urologist who has followed him for hydroceles there and who has mainly managed it by carrying out what seems to be needle aspiration of the fluid. He says that he has also had paracentesis to remove ascitic fluid as well. He still works and travels for work and is here and this area on 1 of these work towards. He says that he has been aware that he does have a hernia on the right side and that he is generally able to push it back in. Over the last few days but mainly specificly yesterday he feels that he has got more swelling of the scrotal area with the ascitic fluid and more tense heavy feeling. He denies any nausea or vomiting and had been able to eat and have a bowel movement yesterday. He is passing gas. He says that he got into trouble couple months ago when they hernia popped out and he was in [facility] and was seen in the hospital there we are surgeon took him to the OR and apparently put him under general anesthesia and was able to manually reduce the hernia this way. It was felt that he was secondary to his liver issues and high volume ascites at high-risk for any surgical intervention to actually fix the hernia defect. He was given a hernia belt and he has been somewhat using that. However now with his scrotal area being so edematous this is not working. He comes in now to have this evaluated. [facility] Past Medical History Medical History (Updated 12/11/24 @ 15:50 by Marian Lopez MD) Insulin dependent type 2 diabetes mellitus Alcoholic cirrhosis Social History Social History Alcohol intake: former Smoked in Last 30 Days: No Use of substances other than those prescribed or required for medical reasons: No Advance Directives: No Advance Directives Information Provided: Yes Do you have a plan to hurt others: No Plan Meds Allergies Allergy/AdvReac Type Severity Reaction Status Date / Time Penicillins Allergy Anaphylaxis Verified 12/11/24 10:03 Active Medications: Current Medications Acetaminophen (Acetaminophen 325 Mg Tablet) 650 mg PO Q6H PRN PRN Reason: Pain, Mild 1-3,fever,headache Calcium Carbonate (Calcium Carbonate 750 Mg Tab.Chew) 750 mg PO Q4H PRN PRN Reason: Heartburn Dextrose (Dextrose 50 % 25 Gm/50 Ml Syringe) 25 gm IVPUSH Q15M PRN; Protocol PRN Reason: per Hypoglycemia Standing Ord. Glucose (Glucose Gel 15 Gm Gel..Gram.) 15 gm PO Q15M PRN; Protocol PRN Reason: per Hypoglycemia Standing Ord. Hydromorphone HCl (Hydromorphone Hcl 1 Mg/Ml Syringe) 1 mg IVPUSH Q4H PRN; Protocol PRN Reason: Pain, Severe (Pain Scale 7-10) Last Admin: 12/11/24 17:10 Dose: 1 mg Levofloxacin (Levaquin) 750 mg in 150 mls @ 100 mls/hr IV Q24H [facility] Last Infusion: 12/11/24 19:06 Dose: Infused Vancomycin HCl 1,250 mg/ (Sodium Chloride) 250 mls @ 166.667 mls/hr IV Q12H [facility] Insulin Human Lispro (Insulin Lispro 100 Unit/Ml 3 Ml Vial) 0 unit SUBCUT Q6H [facility]; Protocol Last Admin: 12/11/24 19:41 Dose: 4 unit Magnesium Hydroxide (Milk Of Magnesia 30 Ml Oral.Susp) 30 ml PO DAILY PRN PRN Reason: Constipation Melatonin (Melatonin 3 Mg Tablet) 6 mg PO BEDTIME PRN PRN Reason: Insomnia Ondansetron HCl (Ondansetron Hcl 4 Mg/2 Ml Vial) 4 mg IVPUSH Q8H PRN PRN Reason: Nausea and Vomiting Pharmacy Consult (Consult Rx Vancomycin Dosing) 1 each MISCELLANE DAILY PRN PRN Reason: Consult order Sodium Chloride (0.9 % Sodium Chloride Flush 3 Ml Syringe) 3 ml IVFLUSH QSHIFT [facility] Last Admin: 12/11/24 17:52 Dose: Not Given Home Medications ?Medication ?Instructions ?Recorded ?Confirmed ?Last Taken ?Type aluminum-mag hydroxide-simethicone 5 ml PO 5XD PRN Acid Indigestion 12/11/24 12/11/24 Unknown History 200 mg-200 mg-20 mg/5 mL oral susp epinephrine 0.3 mg/0.3 mL 0.3 ml IM BID PRN Allergic Reaction 12/11/24 12/11/24 Unknown History injection, auto-injector furosemide 40 mg tablet 40 mg PO BID 12/11/24 12/11/24 12/11/24 History insulin glargine 100 unit/mL (3 unit subcut 12/11/24 Unknown History mL) subcutaneous pen (Basaglar KwikPen U-100 Insulin) melatonin 3 mg tablet 3 mg PO BEDTIME PRN Sleep 12/11/24 12/11/24 Unknown History metformin 500 mg tablet 500 mg PO BID 12/11/24 12/11/24 12/11/24 History Physical Exam Vital Signs: Vital Signs: Last Vital Signs Temp 98.0 F 12/11/24 17:24 Pulse 89 12/11/24 18:21 Resp 12 12/11/24 18:21 BP 120/74 12/11/24 18:21 Pulse Ox 95 12/11/24 18:21 O2 Del Method Room Air 12/11/24 18:21 BMI result Body Mass Index 25.8 Const: General: cooperative and acute distress mild Eyes: Other: Some scleral icterus Resp: Effort & Inspection: normal respiratory effort Auscultation: clear to auscultation bilaterally Cardio: Rate: regular rate Rhythm: regular rhythm GI: Other: Abdomen is soft but it is distended with ascitic fluid tympanic wave. Umbilical hernia is noted mainly with fluid Scrotal area is extremely large bilaterally little more tender in the internal ring on the right side. It is difficult to palpate any true bowel and pushed and reduce this secondary to him feeling uncomfortable. There is definitely more fullness in the inguinal canal area of the right side compared to the left side Results Labs 12/11/24 11:57 12/11/24 11:57 Labs: Abnormal lab results 12/11/24 12/11/24 12/11/24 Range/Units 11:57 12:57 14:18 WBC 4.4 L (4.8-10.8) X10*3/uL RBC 3.98 L (4.60-5.80) X10*6/uL Hgb 11.9 L (14.0-18.0) g/dl Hct 35.5 L (42.0-52.0) % RDW 17.2 H (11.0-16.0) % Plt Count 122 L (160-400) X10*3/uL Immature Gran % (Auto) 0.5 H (0.0-0.4) % Neut % (Auto) 75.6 H (45-73) % Lymph % (Auto) 11.0 L (20-40) % [place] % (Auto) 11.7 H (2-11) % Lymph # (Auto) 0.5 L (1.2-4.9) X10*3/uL Sodium 133 L (135-145) mmol/L Potassium 2.9 L* (3.3-5.1) mmol/L Chloride 95 L (96-108) mmol/L POC Glucose (60-115) mg/dL Random Glucose 411 H* (60-115) mg/dL Lactic Acid 3.9 H* (0.5-2.0) mmol/L Lactic Acid F/U @ 2Hr 3.1 H* (0.5-2.0) mmol/L Lactic Acid F/U @ 4Hr (0.5-2.0) mmol/L Calcium 7.9 L (8.4-10.2) mg/dL Magnesium 1.4 L* (1.6-2.6) mg/dL Total Bilirubin 6.9 H (0.0-1.0) mg/dL AST 44 H (5-37) U/L Albumin 2.3 L (3.5-5.0) g/dL Lipase 80 H (8-78) U/L Urine Protein 100 (2+) H (Neg-Trace) mg/dL Urine Glucose (UA) >=1000 H (Negative) mg/dL Urine Blood Large (3+) H (Negative) Urine RBC >20 H (0-2) /HPF Urine WBC 11-20 H (0-5) /HPF 12/11/24 12/11/24 12/11/24 Range/Units 15:45 17:03 19:36 WBC (4.8-10.8) X10*3/uL RBC (4.60-5.80) X10*6/uL Hgb (14.0-18.0) g/dl Hct (42.0-52.0) % RDW (11.0-16.0) % Plt Count (160-400) X10*3/uL Immature Gran % (Auto) (0.0-0.4) % Neut % (Auto) (45-73) % Lymph % (Auto) (20-40) % [place] % (Auto) (2-11) % Lymph # (Auto) (1.2-4.9) X10*3/uL Sodium (135-145) mmol/L Potassium (3.3-5.1) mmol/L Chloride (96-108) mmol/L POC Glucose 363 H* 241 H (60-115) mg/dL Random Glucose (60-115) mg/dL Lactic Acid (0.5-2.0) mmol/L Lactic Acid F/U @ 2Hr (0.5-2.0) mmol/L Lactic Acid F/U @ 4Hr 3.0 H* (0.5-2.0) mmol/L Calcium (8.4-10.2) mg/dL Magnesium (1.6-2.6) mg/dL Total Bilirubin (0.0-1.0) mg/dL AST (5-37) U/L Albumin (3.5-5.0) g/dL Lipase (8-78) U/L Urine Protein (Neg-Trace) mg/dL Urine Glucose (UA) (Negative) mg/dL Urine Blood (Negative) Urine RBC (0-2) /HPF Urine WBC (0-5) /HPF Short CBC 12/11/24 Range/Units 11:57 WBC 4.4 L (4.8-10.8) X10*3/uL Hgb 11.9 L (14.0-18.0) g/dl Hct 35.5 L (42.0-52.0) % Plt Count 122 L (160-400) X10*3/uL BMP 12/11/24 11:57 Sodium 133 L Potassium 2.9 L* Chloride 95 L Carbon Dioxide 28 BUN 14 Creatinine 0.75 Calcium 7.9 L Liver Function 12/11/24 Range/Units 11:57 Total Bilirubin 6.9 H (0.0-1.0) mg/dL AST 44 H (5-37) U/L ALT < 6 (0-40) U/L Alkaline Phosphatase 104 (39-117) U/L Albumin 2.3 L (3.5-5.0) g/dL Urine 12/11/24 Range/Units 12:57 Urine Color DK YELLOW Urine Appearance Cloudy Urine pH 5.5 (5.0-9.0) Ur Specific [place] 1.025 (1.005-1.025) Urine Protein 100 (2+) H (Neg-Trace) mg/dL Urine Glucose (UA) >=1000 H (Negative) mg/dL All other labs normal. Imaging Additional studies: [address] [address] Ultrasound Report Signed Patient: Low Landry MR#: [id number] : 1975 Acct:[id number] Age/Sex: 48 / M ADM Date: 12/11/24 Loc: .ED Attending Dr: Ordering Physician: Calderon Jimenez DO Date of Service: 12/11/24 Procedure(s): US scrotum Accession Number(s): [id number] cc: Physician,Unknown ; Calderon Jimenez DO~ EXAMINATION: US SCROTUM CLINICAL INFORMATION: Scrotal pain and swelling. COMPARISON: None available. TECHNIQUE: A sonogram of the scrotum was performed assessing helms-scale appearance and color Doppler flow. Spectral Doppler analysis of the arterial and venous flow were performed in the testes bilaterally. FINDINGS: There is scrotal skin thickening, greater on the right. RIGHT: Right testicle measures 2.6 cm, volume 5 mL. No focal testicular parenchymal lesions are visualized. Spectral Doppler analysis of the arterial and venous flow is documented in the right testis. Right epididymis is not well-demonstrated. There is extra testicular multiloculated cystic structure with low-level internal echogenicity measuring 8.9 x 5.5 x 9.7 cm. There are images of the right scrotum that appear to show peristalsing bowel. LEFT: Left testicle measures 3.6 cm, volume 20 mL. No focal testicular parenchymal lesions are visualized. Spectral Doppler analysis of the arterial and venous flow is present in the left testis. Left epididymal head is unremarkable. There is a hydrocele. Left epididymal Doppler flow is present. There is cystlike fluid collection in the left scrotum measuring 4.0 x 8.1 x 2.8 cm US/US scrotum IMPRESSION: Probable peristalsing bowel loops within the right scrotum suggesting a hernia. Multiloculated mildly complex cyst in the right scrotum measuring 8.9 x 5.5 x 9.7 cm the could represent spermatocele or septated chronic hydrocele. Infection is not ruled out. Small left hydrocele and cystlike structure measuring 4.0 x 8.1 x 2.8 cm could represent spermatocele, loculated hydrocele, infection is not ruled out. There is scrotal skin thickening, greater on the right, consistent with inflammation, edema, and/or infection. Electronically signed by: Dimitri Huber MD 12/11/2024 11:27 AM EDT RP Dictated By: Dimitri Huber MD Signed By: <Electronically signed by Dimitri Huber MD in [place]> 12/11/24 1127 DD/ 1030 TD/TT: 12/11/24 1040 Preschool Education Director: Patient: Low Landry MR#: [id number] : 1975 Acct:[id number] Age/Sex: 48 / M ADM Date: 12/11/24 Loc: HO.ED Attending Dr: Ordering Physician: Luis Milian PA-C Date of Service: 12/11/24 Procedure(s): CT abdomen pelvis w IV con Accession Number(s): [id number] cc: Luis Milian PA-C; Physician,Unknown ~ Report Number: [id number]: Total DLP = 704.00 mGy-cm EXAMINATION: CT ABDOMEN AND PELVIS WITH CONTRAST CLINICAL INFORMATION: Diffuse lower abdominal pain and rigidity COMPARISON: None available. TECHNIQUE: Multidetector volumetric images were obtained from the superior aspect of the liver through the pubic symphysis following administration 85 mL of Omnipaque 350 intravenous contrast. Sagittal and coronal reformatted images were obtained on the technologist's workstation. Oral contrast: No This CT examination was performed using dose optimization techniques as appropriate, variously including the following: *Automated exposure control *Adjustment of mA and/or kV according to patient size (this includes techniques or standardized protocols for targeted exams where dose is matched to indication/reason for exam; i.e. extremities or head) *Use of iterative reconstruction technique DLP: 704 mGY*cm FINDINGS: LUNG BASES: The visualized lung bases are unremarkable. LIVER, GALLBLADDER, AND BILIARY TREE: The liver has nodular margin. It appears small with relative enlargement of caudate lobe. There is recannulization of the umbilical vein. There are also a few esophageal varicosities There is gallbladder wall thickening and pericholecystic fluid likely secondary to cirrhosis. PANCREAS: Unremarkable. SPLEEN: The spleen is bulky convex margins and measures 14 cm long axis. ADRENAL GLANDS: Unremarkable. KIDNEYS AND URETERS: There is vague hypodensity in lateral cortex of the mid right kidney and posterior inferiorly. There is nondilated. No stones are evident. BLADDER: Unremarkable. GASTROINTESTINAL TRACT: There is herniation of distal ileum into the right scrotum and inguinal canal, lateral to the epigastric vessels. Small bowel loops immediately proximal to the herniation are borderline dilated and fluid-filled. Bowel loops distal to the herniation or more decompressed. Colonic mucosa appears hypoattenuating. The lumen is decompressed. ABDOMINAL WALL: There is edema in the anterior subcutaneous soft tissues of the lower abdomen and pelvis. LYMPH NODES: Normal. VASCULAR: Splenic vein is enlarged and tortuous likely related collaterals. PELVIC VISCERA: There is scrotal skin thickening and bilateral hydroceles, likely related to ascites tracking from the pelvis into the scrotum through inguinal hernias. OSSEOUS STRUCTURES: Unremarkable. CT/CT abdomen pelvis w IV con IMPRESSION: There is an indirect hernia involving ileum into the right scrotum resulting in a partial low-grade obstruction. Cirrhosis and portal hypertension: There is a small nodular liver with moderate ascites. There is recanalization of the umbilical vein and esophageal varicosities. There is also splenomegaly and splenic vein collaterals. Ascites tracks into the scrotum bilaterally. Vague patchy hypodensity in the right kidney, correlate for signs symptoms of pyelonephritis. Colonic mucosa appears mildly prominent. This probably secondary to cirrhosis, ascites, and hypoalbuminemia. Correlate for signs symptoms of colitis. Fleischner guidelines were followed. Electronically signed by: Dimitri Huber MD 12/11/2024 01:22 PM EDT Dictated By: Dimitri Huber MD Signed By: <Electronically signed by Dimitri Huber MD in [place]> 12/11/24 1322 DD/ 1145 TD/TT: 12/11/24 1300 Preschool Education Director: Assessment and Plan (1) Inguinal hernia: Status: Acute Plan 48-year-old male with alcoholic cirrhosis some moderate ascites and ascites in his scrotal area bilaterally with right inguinal hernia containing some loops of small bowel unable to be completely reduced at this point in time but not causing a true obstruction. Patient isn't high-risk for any surgical intervention especially 1 with repair with mesh. This is due to this large volume of ascites. The surgery itself is also risky secondary to his hepatic status. At this point plan is to admit correction of the electrolytes and consider abdominal tapping of fluid as well as potential scrotal tap as he says this seems to work with his urologist in [place]. We will discuss with Urology. As long as patient is not completely obstructed or with a strangulated component to the bowel loops medical management is the best way to tackle this. We will get INR tomorrow to calculate his MELD score Procedures Date of Service Date of Service: 12/11/24
[2024-12-11 21:09] VITALS: BP 129/61; PULSE 84; RESP 16; TEMP 36.2; O2SAT 93
[2024-12-11 21:29] VITALS: BMI 25.7
[2024-12-12] VITALS (8 sets, daily range): BP systolic 102–134; BP diastolic 55–70; PULSE 82–98; RESP 16–19; TEMP 36.6–38.2; O2SAT 90–97
[2024-12-12 01:03] LABS: Glucose, Whole Blood 158 mg/dL (60-115)
[2024-12-12 05:40] LABS: Glucose, Whole Blood 136 mg/dL (60-115)
[2024-12-12 06:25] LABS: MANUAL DIFF FLAG NO
[2024-12-12 06:47] LABS: Hematocrit 29.9 % (42.0-52.0); Hemoglobin 9.9 g/dl (14.0-18.0); Imm Gran Abs Auto 0.02 X10*3/uL (0.00-0.03); Imm Gran Pct Auto 0.4 % (0.0-0.4); Lymphocytes Absolute Auto 0.7 X10*3/uL (1.2-4.9); Mean Corpuscular HGB Conc 33.1 g/dl (31.0-36.0); Mean Corpuscular Hemoglobin 29.7 pg (27.0-33.0); Mean Corpuscular Volume 89.8 fL (80.0-98.0); NRBC Abs Auto 0.000 X10*3/uL (0.0-0.012); NRBC Pct Auto 0.0 /100WBC (0.0-0.2); Platelet Count 123 X10*3/uL (160-400); Red Blood Count 3.33 X10*6/uL (4.60-5.80); White Blood Count 4.5 X10*3/uL (4.8-10.8)
[2024-12-12 06:56] LABS: Alanine Aminotransferase < 6 U/L (0-40); Albumin Level 2.0 g/dL (3.5-5.0); Alkaline Phosphatase 86 U/L (39-117); Aspartate Amino Transferase 37 U/L (5-37); Blood Urea Nitrogen 15 mg/dL (9-16); Calcium 7.4 mg/dL (8.4-10.2); Creatinine Clr Calc Pharmacy 105.1; Estimated Glomerular Filt Rate > 60; Magnesium 1.6 mg/dL (1.6-2.6); Total Protein 6.3 g/dL (6.5-8.0)
[2024-12-12 07:18] LABS: Anion Gap 11 (12-20); Carbon Dioxide 30 mmol/L (22-29); Chloride 97 mmol/L (96-108); Potassium 2.8 mmol/L (3.3-5.1); Sodium 135 mmol/L (135-145)
[2024-12-12] MEDS: Potassium Chloride/H20 10 MEQ/100 ML PIGGYBACK 100 MEQ IV ×8 (07:26→20:53)
[2024-12-12] MEDS: 0.9 % Sodium Chloride Flush 3 ML SYRINGE IVFLUSH ×3 (07:27→19:41)
[2024-12-12 07:31] LABS: Glucose, Whole Blood 133 mg/dL (60-115)
--- NOTE | 2024-12-12 09:09 | HO.PM.IMPN ---
Subjective Subjective Date of Service: 12/12/24 Interval History: Continues to have scrotal pain. No significant nursing events overnight. Constitutional Constitutional: Reports no additional constitutional complaints Cardiovascular Cardiovascular: Reports no additional cardiovascular complaints Respiratory Respiratory: Reports no additional respiratory complaints Gastrointestinal Gastrointestinal: Reports no additional gastrointestinal complaints Genitourinary Genitourinary: Reports scrotal swelling and Reports testicular pain Physical Exam Exam: Exam: Middle-aged male lying in bed in distress Neck supple, no JVD Regular rate and rhythm, S1-S2 heard Regular breath sounds bilaterally, no wheezing or crackles appreciated Abdomen with mild distention, no tenderness, no guarding Bilateral testicular swelling with tenderness Patient is awake, alert and oriented to self, place, time and person ; no focal motor deficit Psych: Normal mood Vital Signs: Vital Signs: Last Vital Signs Temp 98.1 F 12/12/24 07:52 Pulse 84 12/12/24 07:52 Resp 17 12/12/24 07:52 BP 132/70 12/12/24 07:52 Pulse Ox 92 12/12/24 07:52 O2 Del Method Room Air 12/12/24 07:52 BMI result Body Mass Index 25.7 Objective Data Active Medications Acetaminophen (Acetaminophen 325 Mg Tablet) 650 mg PO Q6H PRN PRN Reason: Pain, Mild 1-3,fever,headache Calcium Carbonate (Calcium Carbonate 750 Mg Tab.Chew) 750 mg PO Q4H PRN PRN Reason: Heartburn Dextrose (Dextrose 50 % 25 Gm/50 Ml Syringe) 25 gm IVPUSH Q15M PRN; Protocol PRN Reason: per Hypoglycemia Standing Ord. Glucose (Glucose Gel 15 Gm Gel..Gram.) 15 gm PO Q15M PRN; Protocol PRN Reason: per Hypoglycemia Standing Ord. Hydromorphone HCl (Hydromorphone Hcl 1 Mg/Ml Syringe) 1 mg IVPUSH Q4H PRN; Protocol PRN Reason: Pain, Severe (Pain Scale 7-10) Last Admin: 12/12/24 05:54 Dose: 1 mg Documented By: MARK Levofloxacin (Levaquin) 750 mg in 150 mls @ 100 mls/hr IV Q24H [facility] Last Infusion: 12/11/24 19:06 Dose: Infused Documented By: MIRTHA Vancomycin HCl 1,250 mg/ (Sodium Chloride) 250 mls @ 166.667 mls/hr IV Q12H [facility] Last Infusion: 12/12/24 07:39 Dose: Infused Documented By: SEAMUS Potassium Chloride (Potassium Chloride/H20) 10 meq in 100 mls @ 100 mls/hr IV Q1H [facility] Stop: 12/12/24 11:29 Last Admin: 12/12/24 08:42 Dose: 100 mls/hr Documented By: SO Insulin Human Lispro (Insulin Lispro 100 Unit/Ml 3 Ml Vial) 0 unit SUBCUT Q6H [facility]; Protocol Last Admin: 12/12/24 05:36 Dose: Not Given Documented By: MARK Non-Admin Reason: No Insulin Coverage Magnesium Hydroxide (Milk Of Magnesia 30 Ml Oral.Susp) 30 ml PO DAILY PRN PRN Reason: Constipation Melatonin (Melatonin 3 Mg Tablet) 6 mg PO BEDTIME PRN PRN Reason: Insomnia Ondansetron HCl (Ondansetron Hcl 4 Mg/2 Ml Vial) 4 mg IVPUSH Q8H PRN PRN Reason: Nausea and Vomiting Pharmacy Consult (Consult Rx Vancomycin Dosing) 1 each MISCELLANE DAILY PRN PRN Reason: Consult order Sodium Chloride (0.9 % Sodium Chloride Flush 3 Ml Syringe) 3 ml IVFLUSH QSHIFT [facility] Last Admin: 12/12/24 07:27 Dose: 3 ml Documented By: SEAMUS Labs 12/12/24 06:02 12/12/24 06:02 Labs: Laboratory Results - last 24 hr 12/11/24 12/11/24 12/11/24 11:57 12:57 14:18 MCV 89.2 MCH 29.9 MCHC 33.5 RDW 17.2 H Plt Count 122 L MPV 10.6 Immature Gran % (Auto) 0.5 H Neut % (Auto) 75.6 H Lymph % (Auto) 11.0 L [place] % (Auto) 11.7 H Eos % (Auto) 0.7 Baso % (Auto) 0.5 Lymph # (Auto) 0.5 L [place] # (Auto) 0.5 Eos # (Auto) 0.0 Baso # (Auto) 0.0 Abs Immat Gran (auto) 0.02 Absolute Neuts (auto) 3.4 Absolute Nucleated RBC 0.000 Nucleated RBC % (auto) 0.0 Anion Gap 13 Estim Creat Clear Calc 119.1 Estimated GFR > 60 POC Glucose Random Glucose 411 H* Lactic Acid 3.9 H* Lactic Acid F/U @ 2Hr 3.1 H* Lactic Acid F/U @ 4Hr Calcium 7.9 L Magnesium 1.4 L* Total Bilirubin 6.9 H Direct Bilirubin AST 44 H ALT < 6 Alkaline Phosphatase 104 Ammonia 36 Total Protein 7.0 Albumin 2.3 L Lipase 80 H Urine Color DK YELLOW Urine Appearance Cloudy Urine pH 5.5 Ur Specific [place] 1.025 Urine Protein 100 (2+) H Urine Glucose (UA) >=1000 H Urine Ketones Negative Urine Blood Large (3+) H Urine Nitrite Negative Ur Leukocyte Esterase Negative Urine RBC >20 H Urine WBC 11-20 H Ur Squamous Epith Cells 6-10 Urine Bacteria None Seen Hyaline Casts 3-5 12/11/24 12/11/24 12/11/24 15:45 17:03 19:36 MCV MCH MCHC RDW Plt Count MPV Immature Gran % (Auto) Neut % (Auto) Lymph % (Auto) [place] % (Auto) Eos % (Auto) Baso % (Auto) Lymph # (Auto) [place] # (Auto) Eos # (Auto) Baso # (Auto) Abs Immat Gran (auto) Absolute Neuts (auto) Absolute Nucleated RBC Nucleated RBC % (auto) Anion Gap Estim Creat Clear Calc Estimated GFR POC Glucose 363 H* 241 H Random Glucose Lactic Acid Lactic Acid F/U @ 2Hr Lactic Acid F/U @ 4Hr 3.0 H* Calcium Magnesium Total Bilirubin Direct Bilirubin AST ALT Alkaline Phosphatase Ammonia Total Protein Albumin Lipase Urine Color Urine Appearance Urine pH Ur Specific [place] Urine Protein Urine Glucose (UA) Urine Ketones Urine Blood Urine Nitrite Ur Leukocyte Esterase Urine RBC Urine WBC Ur Squamous Epith Cells Urine Bacteria Hyaline Casts 12/12/24 12/12/24 12/12/24 00:58 05:35 06:02 MCV 89.8 MCH 29.7 MCHC 33.1 RDW 17.4 H Plt Count 123 L MPV 10.7 Immature Gran % (Auto) 0.4 Neut % (Auto) 66.4 Lymph % (Auto) 16.4 L [place] % (Auto) 11.5 H Eos % (Auto) 4.4 H Baso % (Auto) 0.9 Lymph # (Auto) 0.7 L [place] # (Auto) 0.5 Eos # (Auto) 0.2 Baso # (Auto) 0.0 Abs Immat Gran (auto) 0.02 Absolute Neuts (auto) 3.0 Absolute Nucleated RBC 0.000 Nucleated RBC % (auto) 0.0 Anion Gap 11 L Estim Creat Clear Calc 105.1 Estimated GFR > 60 POC Glucose 158 H 136 H Random Glucose 134 H Lactic Acid Lactic Acid F/U @ 2Hr Lactic Acid F/U @ 4Hr Calcium 7.4 L D Magnesium 1.6 Total Bilirubin 7.3 H Direct Bilirubin 2.8 H AST 37 ALT < 6 Alkaline Phosphatase 86 Ammonia Total Protein 6.3 L Albumin 2.0 L Lipase Urine Color Urine Appearance Urine pH Ur Specific [place] Urine Protein Urine Glucose (UA) Urine Ketones Urine Blood Urine Nitrite Ur Leukocyte Esterase Urine RBC Urine WBC Ur Squamous Epith Cells Urine Bacteria Hyaline Casts 12/12/24 07:27 MCV MCH MCHC RDW Plt Count MPV Immature Gran % (Auto) Neut % (Auto) Lymph % (Auto) [place] % (Auto) Eos % (Auto) Baso % (Auto) Lymph # (Auto) [place] # (Auto) Eos # (Auto) Baso # (Auto) Abs Immat Gran (auto) Absolute Neuts (auto) Absolute Nucleated RBC Nucleated RBC % (auto) Anion Gap Estim Creat Clear Calc Estimated GFR POC Glucose 133 H Random Glucose Lactic Acid Lactic Acid F/U @ 2Hr Lactic Acid F/U @ 4Hr Calcium Magnesium Total Bilirubin Direct Bilirubin AST ALT Alkaline Phosphatase Ammonia Total Protein Albumin Lipase Urine Color Urine Appearance Urine pH Ur Specific [place] Urine Protein Urine Glucose (UA) Urine Ketones Urine Blood Urine Nitrite Ur Leukocyte Esterase Urine RBC Urine WBC Ur Squamous Epith Cells Urine Bacteria Hyaline Casts Assessment and Plan (1) Scrotal cyst: Status: Acute (2) Testicular pain: Status: Acute Plan This is a 48-year-old male with pertinent history of alcohol use disorder, now in remission with alcoholic cirrhosis, insulin-dependent diabetes mellitus who presents to the emergency department for evaluation of testicular pain. #. Bilateral Testicular pain: Imaging concerning for indirect hernia involving ileum into right scrotum resulting in partial low-grade obstruction. Also multiloculated complex cyst in the right scrotum and left-sided hydrocele with cyst. General surgery and Urology eval. Continue empiric IV abx #. Alcoholic cirrhosis with ascites: Continue home diuretics. Therapeutic paracentesis today #. Hypokalemia and hypomagnesemia: Repleted #. Insulin-dependent type 2 diabetes mellitus: Initiating Accu-Cheks sliding scale insulin every 6 hours #. Acute lactic acidosis: Due to metformin use. No sepsis DVT prophylaxis: SCDs Full code Reason for continued hospitalization: evaluation of indirect hernia, scrotal cyst, IV antibiotics (as above), which is not possible in a lesser acute setting. Quality Stroke Does the patient have a stroke diagnosis?: No VTE Prior VTE?: No VTE Risk Level:: Medical - moderate - high VTE Device Contraindication: N/A - Device Ordered VTE Drug Contraindication: Treatment Not Indicated
[2024-12-12] MEDS: Furosemide 40 MG/4 ML VIAL IVPUSH (09:22)
--- NOTE | 2024-12-12 11:43 | PM.UROCN ---
History of Present Illness Consult details Consult date: 12/12/24 Narrative: 48-year-old male with medical history of type 2 diabetes, cirrhosis of the liver (patient on transplant list), inguinal hernia, hydrocele, admitted with complaints of right testicular pain and scrotal swelling. The patient states that he had the right inguinal hernia reduced about 3 months ago in [place]. He follows with a urologist who has drained the testicular hydroceles in the past. Imaging bowel reported in right inguinal hernia into the scrotum. Good Doppler flow to testicles no evidence of infection Left hydrocele. Left testicle palpated nontender. Review of Systems Review of Systems: Yes all other systems are reviewed and are negative Constitutional: Constitutional: Reports no additional constitutional complaints Eyes: Eyes: Reports no additional eye complaints ENT: Reports system reviewed and no additional complaints, except as documented Cardiovascular: Cardiovascular: Reports no additional cardiovascular complaints Respiratory: Respiratory: Reports no additional respiratory complaints Gastrointestinal: Gastrointestinal: Reports no additional gastrointestinal complaints Genitourinary: Genitourinary: Reports as per HPI Musculoskeletal: Musculoskeletal: Reports no additional musculoskeletal complaints Integumentary/Breasts: Skin/Breast: Reports system reviewed and no additional complaints, except as docu Neurologic: Reports system reviewed and no additional complaints, except as documented Psychiatric: Psychiatric: Reports no additional psychiatric complaints Endocrine: Endocrine: Reports no additional endocrine complaints Hematologic/Lymphatic: Hematologic/Lymphatic: Reports no additional hematologic/lymphatic complaints Allergic/Immunologic: Allergic/Immunologic: Reports no additional allergic/immunologic complaints [facility] Past Medical History Medical History Insulin dependent type 2 diabetes mellitus Alcoholic cirrhosis Social History Social History Household Members: Spouse Household Members Other:: travels for work Do you presently have visiting nurse or other home services: No Alcohol intake: former Patient Tobacco Use Status: Never used Tobacco Smoked in Last 30 Days: No Use of substances other than those prescribed or required for medical reasons: No Currently Displaying Signs/Symptoms of Drug Intoxication Withdrawal: No Have you been hit, kicked, punched, or otherwise hurt by someone within the past year? If so, by whom?: No Do you feel safe in your current relationship?: Yes Is there a partner from a previous relationship who is making you feel unsafe now?: No Are you made to feel afraid or neglected: No Advance Directives: No Advance Directives Information Provided: Yes Do you have a plan to hurt others: No Plan Recently lost weight without trying: No Nutrition Risks: No Nutritional Risk Poor oral hygiene: No Meds Allergies Allergy/AdvReac Type Severity Reaction Status Date / Time Penicillins Allergy Anaphylaxis Verified 12/11/24 10:03 diphenhydramine (From AdvReac Nightmare Verified 12/11/24 22:51 Benadryl) Active Medications: Current Medications Acetaminophen (Acetaminophen 325 Mg Tablet) 650 mg PO Q6H PRN PRN Reason: Pain, Mild 1-3,fever,headache Calcium Carbonate (Calcium Carbonate 750 Mg Tab.Chew) 750 mg PO Q4H PRN PRN Reason: Heartburn Dextrose (Dextrose 50 % 25 Gm/50 Ml Syringe) 25 gm IVPUSH Q15M PRN; Protocol PRN Reason: per Hypoglycemia Standing Ord. Glucose (Glucose Gel 15 Gm Gel..Gram.) 15 gm PO Q15M PRN; Protocol PRN Reason: per Hypoglycemia Standing Ord. Hydromorphone HCl (Hydromorphone Hcl 1 Mg/Ml Syringe) 1 mg IVPUSH Q4H PRN; Protocol PRN Reason: Pain, Severe (Pain Scale 7-10) Last Admin: 12/12/24 05:54 Dose: 1 mg Levofloxacin (Levaquin) 750 mg in 150 mls @ 100 mls/hr IV Q24H [facility] Last Infusion: 12/11/24 19:06 Dose: Infused Vancomycin HCl 1,250 mg/ (Sodium Chloride) 250 mls @ 166.667 mls/hr IV Q12H [facility] Last Infusion: 12/12/24 07:39 Dose: Infused Insulin Human Lispro (Insulin Lispro 100 Unit/Ml 3 Ml Vial) 0 unit SUBCUT Q6H [place]; Protocol Last Admin: 12/12/24 05:36 Dose: Not Given Magnesium Hydroxide (Milk Of Magnesia 30 Ml Oral.Susp) 30 ml PO DAILY PRN PRN Reason: Constipation Melatonin (Melatonin 3 Mg Tablet) 6 mg PO BEDTIME PRN PRN Reason: Insomnia Ondansetron HCl (Ondansetron Hcl 4 Mg/2 Ml Vial) 4 mg IVPUSH Q8H PRN PRN Reason: Nausea and Vomiting Pharmacy Consult (Consult Rx Vancomycin Dosing) 1 each MISCELLANE DAILY PRN PRN Reason: Consult order Sodium Chloride (0.9 % Sodium Chloride Flush 3 Ml Syringe) [facility] Last Admin: 12/12/24 07:27 Dose: 3 ml Home Medications ?Medication ?Instructions ?Recorded ?Confirmed ?Last Taken ?Type aluminum-mag hydroxide-simethicone 5 ml PO 5XD PRN Acid Indigestion 12/11/24 12/11/24 Unknown History 200 mg-200 mg-20 mg/5 mL oral susp epinephrine 0.3 mg/0.3 mL 0.3 ml IM BID PRN Allergic Reaction 12/11/24 12/11/24 Unknown History injection, auto-injector furosemide 40 mg tablet 40 mg PO BID 12/11/24 12/11/24 12/11/24 History insulin glargine 100 unit/mL (3 unit subcut 12/11/24 Unknown History mL) subcutaneous pen (Basaglar KwikPen U-100 Insulin) melatonin 3 mg tablet 3 mg PO BEDTIME PRN Sleep 12/11/24 12/11/24 Unknown History metformin 500 mg tablet 500 mg PO BID 12/11/24 12/11/24 12/11/24 History Physical Exam Vital Signs: Vital Signs: Last Vital Signs Temp 98.1 F 12/12/24 07:52 Pulse 84 12/12/24 07:52 Resp 17 12/12/24 07:52 BP 132/70 12/12/24 07:52 Pulse Ox 92 12/12/24 07:52 O2 Del Method Room Air 12/12/24 07:52 BMI result Body Mass Index 25.7 Const: Orientation/consciousness: patient oriented x3 HEENT: Head: Yes normocephalic and Yes atraumatic Neck: Neck: Yes normal visual inspection Chest: Chest palpation & inspection: normal inspection of the chest Resp: Effort & Inspection: normal respiratory effort Cardio: Rate: regular rate GI: Inspection: Yes normal to inspection : Other: Right inguinal hernia. Left testicle palpated on exam nontender. Scrotal swelling No signs of cellulitis or orchitis Scrotum: scrotum normal Neuro: General: patient oriented x3 Psych: Appearance: grossly normal Affect: normal affect Results Labs 12/12/24 06:02 12/12/24 06:02 Labs: Abnormal lab results 12/11/24 12/11/24 12/11/24 Range/Units 11:57 12:57 14:18 WBC 4.4 L (4.8-10.8) X10*3/uL RBC 3.98 L (4.60-5.80) X10*6/uL Hgb 11.9 L (14.0-18.0) g/dl Hct 35.5 L (42.0-52.0) % RDW 17.2 H (11.0-16.0) % Plt Count 122 L (160-400) X10*3/uL Immature Gran % (Auto) 0.5 H (0.0-0.4) % Neut % (Auto) 75.6 H (45-73) % Lymph % (Auto) 11.0 L (20-40) % [place] % (Auto) 11.7 H (2-11) % Eos % (Auto) (0-4) % Lymph # (Auto) 0.5 L (1.2-4.9) X10*3/uL Sodium 133 L (135-145) mmol/L Potassium 2.9 L* (3.3-5.1) mmol/L Chloride 95 L (96-108) mmol/L Carbon Dioxide (22-29) mmol/L Anion Gap (12-20) POC Glucose (60-115) mg/dL Random Glucose 411 H* (60-115) mg/dL Lactic Acid 3.9 H* (0.5-2.0) mmol/L Lactic Acid F/U @ 2Hr 3.1 H* (0.5-2.0) mmol/L Lactic Acid F/U @ 4Hr (0.5-2.0) mmol/L Calcium 7.9 L (8.4-10.2) mg/dL Magnesium 1.4 L* (1.6-2.6) mg/dL Total Bilirubin 6.9 H (0.0-1.0) mg/dL Direct Bilirubin (0.0-0.5) mg/dL AST 44 H (5-37) U/L Total Protein (6.5-8.0) g/dL Albumin 2.3 L (3.5-5.0) g/dL Lipase 80 H (8-78) U/L Urine Protein 100 (2+) H (Neg-Trace) mg/dL Urine Glucose (UA) >=1000 H (Negative) mg/dL Urine Blood Large (3+) H (Negative) Urine RBC >20 H (0-2) /HPF Urine WBC 11-20 H (0-5) /HPF 12/11/24 12/11/24 12/11/24 Range/Units 15:45 17:03 19:36 WBC (4.8-10.8) X10*3/uL RBC (4.60-5.80) X10*6/uL Hgb (14.0-18.0) g/dl Hct (42.0-52.0) % RDW (11.0-16.0) % Plt Count (160-400) X10*3/uL Immature Gran % (Auto) (0.0-0.4) % Neut % (Auto) (45-73) % Lymph % (Auto) (20-40) % [place] % (Auto) (2-11) % Eos % (Auto) (0-4) % Lymph # (Auto) (1.2-4.9) X10*3/uL Sodium (135-145) mmol/L Potassium (3.3-5.1) mmol/L Chloride (96-108) mmol/L Carbon Dioxide (22-29) mmol/L Anion Gap (12-20) POC Glucose 363 H* 241 H (60-115) mg/dL Random Glucose (60-115) mg/dL Lactic Acid (0.5-2.0) mmol/L Lactic Acid F/U @ 2Hr (0.5-2.0) mmol/L Lactic Acid F/U @ 4Hr 3.0 H* (0.5-2.0) mmol/L Calcium (8.4-10.2) mg/dL Magnesium (1.6-2.6) mg/dL Total Bilirubin (0.0-1.0) mg/dL Direct Bilirubin (0.0-0.5) mg/dL AST (5-37) U/L Total Protein (6.5-8.0) g/dL Albumin (3.5-5.0) g/dL Lipase (8-78) U/L Urine Protein (Neg-Trace) mg/dL Urine Glucose (UA) (Negative) mg/dL Urine Blood (Negative) Urine RBC (0-2) /HPF Urine WBC (0-5) /HPF 12/12/24 12/12/24 12/12/24 Range/Units 00:58 05:35 06:02 WBC 4.5 L (4.8-10.8) X10*3/uL RBC 3.33 L (4.60-5.80) X10*6/uL Hgb 9.9 L (14.0-18.0) g/dl Hct 29.9 L (42.0-52.0) % RDW 17.4 H (11.0-16.0) % Plt Count 123 L (160-400) X10*3/uL Immature Gran % (Auto) (0.0-0.4) % Neut % (Auto) (45-73) % Lymph % (Auto) 16.4 L (20-40) % [place] % (Auto) 11.5 H (2-11) % Eos % (Auto) 4.4 H (0-4) % Lymph # (Auto) 0.7 L (1.2-4.9) X10*3/uL Sodium (135-145) mmol/L Potassium 2.8 L* (3.3-5.1) mmol/L Chloride (96-108) mmol/L Carbon Dioxide 30 H (22-29) mmol/L Anion Gap 11 L (12-20) POC Glucose 158 H 136 H (60-115) mg/dL Random Glucose 134 H (60-115) mg/dL Lactic Acid (0.5-2.0) mmol/L Lactic Acid F/U @ 2Hr (0.5-2.0) mmol/L Lactic Acid F/U @ 4Hr (0.5-2.0) mmol/L Calcium 7.4 L D (8.4-10.2) mg/dL Magnesium (1.6-2.6) mg/dL Total Bilirubin 7.3 H (0.0-1.0) mg/dL Direct Bilirubin 2.8 H (0.0-0.5) mg/dL AST (5-37) U/L Total Protein 6.3 L (6.5-8.0) g/dL Albumin 2.0 L (3.5-5.0) g/dL Lipase (8-78) U/L Urine Protein (Neg-Trace) mg/dL Urine Glucose (UA) (Negative) mg/dL Urine Blood (Negative) Urine RBC (0-2) /HPF Urine WBC (0-5) /HPF 12/12/24 Range/Units 07:27 WBC (4.8-10.8) X10*3/uL RBC (4.60-5.80) X10*6/uL Hgb (14.0-18.0) g/dl Hct (42.0-52.0) % RDW (11.0-16.0) % Plt Count (160-400) X10*3/uL Immature Gran % (Auto) (0.0-0.4) % Neut % (Auto) (45-73) % Lymph % (Auto) (20-40) % [place] % (Auto) (2-11) % Eos % (Auto) (0-4) % Lymph # (Auto) (1.2-4.9) X10*3/uL Sodium (135-145) mmol/L Potassium (3.3-5.1) mmol/L Chloride (96-108) mmol/L Carbon Dioxide (22-29) mmol/L Anion Gap (12-20) POC Glucose 133 H (60-115) mg/dL Random Glucose (60-115) mg/dL Lactic Acid (0.5-2.0) mmol/L Lactic Acid F/U @ 2Hr (0.5-2.0) mmol/L Lactic Acid F/U @ 4Hr (0.5-2.0) mmol/L Calcium (8.4-10.2) mg/dL Magnesium (1.6-2.6) mg/dL Total Bilirubin (0.0-1.0) mg/dL Direct Bilirubin (0.0-0.5) mg/dL AST (5-37) U/L Total Protein (6.5-8.0) g/dL Albumin (3.5-5.0) g/dL Lipase (8-78) U/L Urine Protein (Neg-Trace) mg/dL Urine Glucose (UA) (Negative) mg/dL Urine Blood (Negative) Urine RBC (0-2) /HPF Urine WBC (0-5) /HPF Short CBC 12/11/24 12/12/24 Range/Units 11:57 06:02 WBC 4.4 L 4.5 L (4.8-10.8) X10*3/uL Hgb 11.9 L 9.9 L (14.0-18.0) g/dl Hct 35.5 L 29.9 L (42.0-52.0) % Plt Count 122 L 123 L (160-400) X10*3/uL BMP 12/11/24 12/12/24 11:57 06:02 Sodium 133 L 135 Potassium 2.9 L* 2.8 L* Chloride 95 L 97 Carbon Dioxide 28 30 H BUN 14 15 Creatinine 0.75 0.85 Calcium 7.9 L 7.4 L D Liver Function 12/11/24 12/12/24 Range/Units 11:57 06:02 Total Bilirubin 6.9 H 7.3 H (0.0-1.0) mg/dL Direct Bilirubin 2.8 H (0.0-0.5) mg/dL AST 44 H 37 (5-37) U/L ALT < 6 < 6 (0-40) U/L Alkaline Phosphatase 104 86 (39-117) U/L Albumin 2.3 L 2.0 L (3.5-5.0) g/dL Urine 12/11/24 Range/Units 12:57 Urine Color DK YELLOW Urine Appearance Cloudy Urine pH 5.5 (5.0-9.0) Ur Specific [place] 1.025 (1.005-1.025) Urine Protein 100 (2+) H (Neg-Trace) mg/dL Urine Glucose (UA) >=1000 H (Negative) mg/dL Imaging Additional studies: Date of Service: 12/11/24 EXAMINATION: CT ABDOMEN AND PELVIS WITH CONTRAST CLINICAL INFORMATION: Diffuse lower abdominal pain and rigidity COMPARISON: None available. TECHNIQUE: Multidetector volumetric images were obtained from the superior aspect of the liver through the pubic symphysis following administration 85 mL of Omnipaque 350 intravenous contrast. Sagittal and coronal reformatted images were obtained on the technologist's workstation. Oral contrast: No This CT examination was performed using dose optimization techniques as appropriate, variously including the following: *Automated exposure control *Adjustment of mA and/or kV according to patient size (this includes techniques or standardized protocols for targeted exams where dose is matched to indication/reason for exam; i.e. extremities or head) *Use of iterative reconstruction technique DLP: 704 mGY*cm FINDINGS: LUNG BASES: The visualized lung bases are unremarkable. LIVER, GALLBLADDER, AND BILIARY TREE: The liver has nodular margin. It appears small with relative enlargement of caudate lobe. There is recannulization of the umbilical vein. There are also a few esophageal varicosities There is gallbladder wall thickening and pericholecystic fluid likely secondary to cirrhosis. PANCREAS: Unremarkable. SPLEEN: The spleen is bulky convex margins and measures 14 cm long axis. ADRENAL GLANDS: Unremarkable. KIDNEYS AND URETERS: There is vague hypodensity in lateral cortex of the mid right kidney and posterior inferiorly. There is nondilated. No stones are evident. BLADDER: Unremarkable. GASTROINTESTINAL TRACT: There is herniation of distal ileum into the right scrotum and inguinal canal, lateral to the epigastric vessels. Small bowel loops immediately proximal to the herniation are borderline dilated and fluid-filled. Bowel loops distal to the herniation or more decompressed. Colonic mucosa appears hypoattenuating. The lumen is decompressed. ABDOMINAL WALL: There is edema in the anterior subcutaneous soft tissues of the lower abdomen and pelvis. LYMPH NODES: Normal. VASCULAR: Splenic vein is enlarged and tortuous likely related collaterals. PELVIC VISCERA: There is scrotal skin thickening and bilateral hydroceles, likely related to ascites tracking from the pelvis into the scrotum through inguinal hernias. OSSEOUS STRUCTURES: Unremarkable. IMPRESSION: There is an indirect hernia involving ileum into the right scrotum resulting in a partial low-grade obstruction. Cirrhosis and portal hypertension: There is a small nodular liver with moderate ascites. There is recanalization of the umbilical vein and esophageal varicosities. There is also splenomegaly and splenic vein collaterals. Ascites tracks into the scrotum bilaterally. Vague patchy hypodensity in the right kidney, correlate for signs symptoms of pyelonephritis. Colonic mucosa appears mildly prominent. This probably secondary to cirrhosis, ascites, and hypoalbuminemia. Correlate for signs symptoms of colitis. Date of Service: 12/11/24 US SCROTUM CLINICAL INFORMATION: Scrotal pain and swelling. COMPARISON: None available. TECHNIQUE: A sonogram of the scrotum was performed assessing helms-scale appearance and color Doppler flow. Spectral Doppler analysis of the arterial and venous flow were performed in the testes bilaterally. FINDINGS: There is scrotal skin thickening, greater on the right. RIGHT: Right testicle measures 2.6 cm, volume 5 mL. No focal testicular parenchymal lesions are visualized. Spectral Doppler analysis of the arterial and venous flow is documented in the right testis. Right epididymis is not well-demonstrated. There is extra testicular multiloculated cystic structure with low-level internal echogenicity measuring 8.9 x 5.5 x 9.7 cm. There are images of the right scrotum that appear to show peristalsing bowel. LEFT: Left testicle measures 3.6 cm, volume 20 mL. No focal testicular parenchymal lesions are visualized. Spectral Doppler analysis of the arterial and venous flow is present in the left testis. Left epididymal head is unremarkable. There is a hydrocele. Left epididymal Doppler flow is present. There is cystlike fluid collection in the left scrotum measuring 4.0 x 8.1 x 2.8 cm IMPRESSION: Probable peristalsing bowel loops within the right scrotum suggesting a hernia. Multiloculated mildly complex cyst in the right scrotum measuring 8.9 x 5.5 x 9.7 cm the could represent spermatocele or septated chronic hydrocele. Infection is not ruled out. Small left hydrocele and cystlike structure measuring 4.0 x 8.1 x 2.8 cm could represent spermatocele, loculated hydrocele, infection is not ruled out. There is scrotal skin thickening, greater on the right, consistent with inflammation, edema, and/or infection. Assessment and Plan (1) Inguinal hernia: Status: Acute (2) Right groin pain: Status: Acute (3) Hydrocele, left: Status: Acute (4) Scrotal swelling: Status: Acute Plan Right groin pain. Right inguinal hernia, General surgery to evaluate right inguinal hernia. bowel in hernia left hydrocele. Left testicle palpated on exam nontender. No signs of cellulitis or orchitis on imaging. No urgent intervention regarding hydrocele at this time. Procedures Date of Service Date of Service: 12/12/24
[2024-12-12 12:35] LABS: Glucose, Whole Blood 121 mg/dL (60-115)
--- NOTE | 2024-12-12 13:13 | P.PNGS_ITS ---
Subjective Subjective Date of Service: 12/12/24 <Adela Owens PA-C - Last Filed: 12/12/24 13:23> 12/12/24 <Ketty Wick MD - Last Filed: 12/12/24 17:59> Interval history: Overall feels improved but does continue with right groin/scrotal pain, although better than presentation. He denies significant flatus. Denies nausea/vomiting. <Adela Owens PA-C - Last Filed: 12/12/24 13:23> Physical Exam 2 Vital Signs: Vital Signs: Last Vital Signs Temp 98.1 F 12/12/24 07:52 Pulse 84 12/12/24 07:52 Resp 17 12/12/24 07:52 BP 132/70 12/12/24 07:52 Pulse Ox 92 12/12/24 07:52 O2 Del Method Room Air 12/12/24 07:52 BMI result Body Mass Index 25.7 <Adela Owens PA-C - Last Filed: 12/12/24 13:23> Const: General: comfortable, no acute distress and alert <Adela Owens PA-C - Last Filed: 12/12/24 13:23> Orientation/consciousness: patient oriented x3 <Adela Owens PA-C - Last Filed: 12/12/24 13:23> Resp: Effort & Inspection: normal respiratory effort <Adela Owens PA-C - Last Filed: 12/12/24 13:23> GI: Other: small umbilical hernia present tender at right groin scrotum very large b/l, no overlying skin changes <Adela Owens PA-C - Last Filed: 12/12/24 13:23> Inspection: Yes distended (very mild ) <YAYA Petty Last Filed: 12/12/24 13:23> Palpation (GI): Soft to palpation <YAYA Petty Last Filed: 12/12/24 13:23> Skin: General skin exam: jaundice <Adela Owens PA-C - Last Filed: 12/12/24 13:23> Neuro: General: patient oriented x3 and moves all extremities <Adela Owens PA-C - Last Filed: 12/12/24 13:23> Objective Data Active Medications Acetaminophen (Acetaminophen 325 Mg Tablet) 650 mg PO Q6H PRN PRN Reason: Pain, Mild 1-3,fever,headache Calcium Carbonate (Calcium Carbonate 750 Mg Tab.Chew) 750 mg PO Q4H PRN PRN Reason: Heartburn Dextrose (Dextrose 50 % 25 Gm/50 Ml Syringe) 25 gm IVPUSH Q15M PRN; Protocol PRN Reason: per Hypoglycemia Standing Ord. Glucose (Glucose Gel 15 Gm Gel..Gram.) 15 gm PO Q15M PRN; Protocol PRN Reason: per Hypoglycemia Standing Ord. Hydromorphone HCl (Hydromorphone Hcl 1 Mg/Ml Syringe) 1 mg IVPUSH Q4H PRN; Protocol PRN Reason: Pain, Severe (Pain Scale 7-10) Last Admin: 12/12/24 12:53 Dose: 1 mg Documented By: SEAMUS Levofloxacin (Levaquin) 750 mg in 150 mls @ 100 mls/hr IV Q24H [facility] Last Infusion: 12/11/24 19:06 Dose: Infused Documented By: MIRTHA Vancomycin HCl 1,250 mg/ (Sodium Chloride) 250 mls @ 166.667 mls/hr IV Q12H [facility] Last Infusion: 12/12/24 07:39 Dose: Infused Documented By: SEAMUS Insulin Human Lispro (Insulin Lispro 100 Unit/Ml 3 Ml Vial) 0 unit SUBCUT Q6H [facility]; Protocol Last Admin: 12/12/24 12:40 Dose: Not Given Documented By: SEAMUS Non-Admin Reason: No Insulin Coverage Magnesium Hydroxide (Milk Of Magnesia 30 Ml Oral.Susp) 30 ml PO DAILY PRN PRN Reason: Constipation Melatonin (Melatonin 3 Mg Tablet) 6 mg PO BEDTIME PRN PRN Reason: Insomnia Ondansetron HCl (Ondansetron Hcl 4 Mg/2 Ml Vial) 4 mg IVPUSH Q8H PRN PRN Reason: Nausea and Vomiting Pharmacy Consult (Consult Rx Vancomycin Dosing) 1 each MISCELLANE DAILY PRN PRN Reason: Consult order Sodium Chloride (0.9 % Sodium Chloride Flush 3 Ml Syringe) 3 ml IVFLUSH [facility] Last Admin: 12/12/24 07:27 Dose: 3 ml Documented By: SEAMUS <Adela Owens PA-C - Last Filed: 12/12/24 13:23> Labs CBC & Chem 7: 12/12/24 06:02 12/12/24 06:02 <Adela Owens PA-C - Last Filed: 12/12/24 13:23> Labs: Laboratory Results - last 24 hr 12/11/24 12/11/24 12/11/24 12:57 14:18 15:45 MCV MCH MCHC RDW Plt Count MPV Immature Gran % (Auto) Neut % (Auto) Lymph % (Auto) [place] % (Auto) Eos % (Auto) Baso % (Auto) Lymph # (Auto) [place] # (Auto) Eos # (Auto) Baso # (Auto) Abs Immat Gran (auto) Absolute Neuts (auto) Absolute Nucleated RBC Nucleated RBC % (auto) Anion Gap Estim Creat Clear Calc Estimated GFR POC Glucose 363 H* Random Glucose Lactic Acid F/U @ 2Hr 3.1 H* Lactic Acid F/U @ 4Hr Calcium Magnesium Total Bilirubin Direct Bilirubin AST ALT Alkaline Phosphatase Total Protein Albumin Urine Color DK YELLOW Urine Appearance Cloudy Urine pH 5.5 Ur Specific [place] 1.025 Urine Protein 100 (2+) H Urine Glucose (UA) >=1000 H Urine Ketones Negative Urine Blood Large (3+) H Urine Nitrite Negative Ur Leukocyte Esterase Negative Urine RBC >20 H Urine WBC 11-20 H Ur Squamous Epith Cells 6-10 Urine Bacteria None Seen Hyaline Casts 3-5 12/11/24 12/11/24 12/12/24 17:03 19:36 00:58 MCV MCH MCHC RDW Plt Count MPV Immature Gran % (Auto) Neut % (Auto) Lymph % (Auto) [place] % (Auto) Eos % (Auto) Baso % (Auto) Lymph # (Auto) [place] # (Auto) Eos # (Auto) Baso # (Auto) Abs Immat Gran (auto) Absolute Neuts (auto) Absolute Nucleated RBC Nucleated RBC % (auto) Anion Gap Estim Creat Clear Calc Estimated GFR POC Glucose 241 H 158 H Random Glucose Lactic Acid F/U @ 2Hr Lactic Acid F/U @ 4Hr 3.0 H* Calcium Magnesium Total Bilirubin Direct Bilirubin AST ALT Alkaline Phosphatase Total Protein Albumin Urine Color Urine Appearance Urine pH Ur Specific [place] Urine Protein Urine Glucose (UA) Urine Ketones Urine Blood Urine Nitrite Ur Leukocyte Esterase Urine RBC Urine WBC Ur Squamous Epith Cells Urine Bacteria Hyaline Casts 12/12/24 12/12/24 12/12/24 05:35 06:02 07:27 MCV 89.8 MCH 29.7 MCHC 33.1 RDW 17.4 H Plt Count 123 L MPV 10.7 Immature Gran % (Auto) 0.4 Neut % (Auto) 66.4 Lymph % (Auto) 16.4 L [place] % (Auto) 11.5 H Eos % (Auto) 4.4 H Baso % (Auto) 0.9 Lymph # (Auto) 0.7 L [place] # (Auto) 0.5 Eos # (Auto) 0.2 Baso # (Auto) 0.0 Abs Immat Gran (auto) 0.02 Absolute Neuts (auto) 3.0 Absolute Nucleated RBC 0.000 Nucleated RBC % (auto) 0.0 Anion Gap 11 L Estim Creat Clear Calc 105.1 Estimated GFR > 60 POC Glucose 136 H 133 H Random Glucose 134 H Lactic Acid F/U @ 2Hr Lactic Acid F/U @ 4Hr Calcium 7.4 L D Magnesium 1.6 Total Bilirubin 7.3 H Direct Bilirubin 2.8 H AST 37 ALT < 6 Alkaline Phosphatase 86 Total Protein 6.3 L Albumin 2.0 L Urine Color Urine Appearance Urine pH Ur Specific [place] Urine Protein Urine Glucose (UA) Urine Ketones Urine Blood Urine Nitrite Ur Leukocyte Esterase Urine RBC Urine WBC Ur Squamous Epith Cells Urine Bacteria Hyaline Casts 12/12/24 12:31 MCV MCH MCHC RDW Plt Count MPV Immature Gran % (Auto) Neut % (Auto) Lymph % (Auto) [place] % (Auto) Eos % (Auto) Baso % (Auto) Lymph # (Auto) [place] # (Auto) Eos # (Auto) Baso # (Auto) Abs Immat Gran (auto) Absolute Neuts (auto) Absolute Nucleated RBC Nucleated RBC % (auto) Anion Gap Estim Creat Clear Calc Estimated GFR POC Glucose 121 H Random Glucose Lactic Acid F/U @ 2Hr Lactic Acid F/U @ 4Hr Calcium Magnesium Total Bilirubin Direct Bilirubin AST ALT Alkaline Phosphatase Total Protein Albumin Urine Color Urine Appearance Urine pH Ur Specific [place] Urine Protein Urine Glucose (UA) Urine Ketones Urine Blood Urine Nitrite Ur Leukocyte Esterase Urine RBC Urine WBC Ur Squamous Epith Cells Urine Bacteria Hyaline Casts <Adela Owens PA-C - Last Filed: 12/12/24 13:23> Microbiology Microbiology Results: Microbiology 12/11/24 Unknown Urine Culture - Preliminary Urine clean catch - Clean Catch Midstream Culture in progress. <Adela Owens PA-C - Last Filed: 12/12/24 13:23> Procedures Date of Service Date of Service: 12/12/24 <Adela Owens PA-C - Last Filed: 12/12/24 13:23> 12/12/24 <Ketty Wick MD - Last Filed: 12/12/24 17:59> Progress Note: A&P Assessment and plan (1) Incarcerated right inguinal hernia: Status: Acute <Adela Owens PA-C - Last Filed: 12/12/24 13:23> (2) Alcoholic cirrhosis: Status: Acute <Adela Owens PA-C - Last Filed: 12/12/24 13:23> (3) Hydrocele, left: Status: Acute <Adela Owens PA-C - Last Filed: 12/12/24 13:23> Assessment and Plan: He remains tender at the right groin however he does feel improved and is clinically not obstructed. Recommend continuing conservative care as he remains high risk for surgical repair due to his hepatic status and he will likely have poor healing due to the ascites. Consider scrotal tap as he says this seems to work with his urologist in [place]. Another option would be attempting reduction of the right inguinal hernia under sedation in the OR if absolutely necessary however clinically he is not obstructed or strangulated. PT/INR ordered. < Adela Owens PA-C - Last Filed: 12/12/24 13:23> He remains tender at the right groin however he does feel improved and is clinically not obstructed. Recommend continuing conservative care as he remains high risk for surgical repair due to his hepatic status and he will likely have poor healing due to the ascites. Consider scrotal tap as he says this seems to work with his urologist in [place]. Another option would be attempting reduction of the right inguinal hernia under sedation in the OR if absolutely necessary however clinically he is not obstructed or strangulated. PT/INR ordered. Patient is seen and examined independently 48-year-old male with moderate to severe hepatic insufficiency MELD score was calculated to be 21 which translates to a 76% estimated 3 month mortality rate. He continues to have the hernia in the right groin passing gas. Urology saw the patient does not think the hydroceles are significant for drainage. as a result our plan is to try to do reduction of right inguinal hernia incarcerated in the operating room. If this is not work in his not successful we will abandoned procedure and discussed with the patient about transfer to a liver center. He has a liver team that works with him in [place] but that is a bit of a distance and are closest area would probably be [facility]. We will discuss this in further detail if this is not successful. He understands and agrees with the above plan. <Ketty Wick MD - Last Filed: 12/12/24 17:59> Time Spent With Patient Time: Total time managing care of this patient today ____ minutes. <Adela Owens PA-C - Last Filed: 12/12/24 13:23> Quality Stroke Does the patient have a stroke diagnosis?: No <Adela Owens PA-C - Last Filed: 12/12/24 13:23> VTE Prior VTE?: No <Adela Owens PA-C - Last Filed: 12/12/24 13:23> VTE Risk Level:: Medical - moderate - high <Adela Owens PA-C - Last Filed: 12/12/24 13:23> VTE Device Contraindication: N/A - Device Ordered <Adela Owens PA-C - Last Filed: 12/12/24 13:23> VTE Drug Contraindication: Treatment Not Indicated <Adela Owens PA-C - Last Filed: 12/12/24 13:23>
--- NOTE | 2024-12-12 13:18 | MHC.CM.PN ---
Patient lives in [place]. He travels for work. Patients states that he lives w spouse. He is independent with all functional mobility. No DME. [facility] MD brochure given to the patient. A HCP has been documented and scanned into Pt's EMR. Patient states that his insurance may have . A Financial [employer] car[employer] consult has been sent. [facility]. Patient will self transport, car in lot.
[2024-12-12 13:51] LABS: INTERNATIONAL NORM RATIO 1.8 (0.9-1.1); Prothrombin Time 21.2 SEC (10.9-12.4)
--- NOTE | 2024-12-12 17:38 | P.CONAN_ITS ---
HPI - Anesthesia Eval Consult details Narrative: Incarcerated right inguinal hernia (right) PMFSH Active Problems Active Problems: All Active Problems Incarcerated right inguinal hernia (Acute) Scrotal swelling (Acute) Hydrocele, left (Acute) Right groin pain (Acute) Testicular pain (Acute) Insulin dependent type 2 diabetes mellitus (Acute) Alcoholic cirrhosis (Acute) Scrotal cyst (Acute) Hypokalemia (Acute) Inguinal hernia (Acute) Past Medical History Medical History Insulin dependent type 2 diabetes mellitus Alcoholic cirrhosis Family History Family history of problems with anesthesia: No Surgical History History of Problems with Anesthesia: No Social History Social History Household Members: Spouse Household Members Other:: travels for work Do you presently have visiting nurse or other home services: No Alcohol intake: former Patient Tobacco Use Status: Never used Tobacco Smoked in Last 30 Days: No Use of substances other than those prescribed or required for medical reasons: No Currently Displaying Signs/Symptoms of Drug Intoxication Withdrawal: No Have you been hit, kicked, punched, or otherwise hurt by someone within the past year? If so, by whom?: No Do you feel safe in your current relationship?: Yes Is there a partner from a previous relationship who is making you feel unsafe now?: No Are you made to feel afraid or neglected: No Advance Directives: No Advance Directives Information Provided: Yes Do you have a plan to hurt others: No Plan Recently lost weight without trying: No Nutrition Risks: No Nutritional Risk Poor oral hygiene: No service: No Meds Allergies Allergy/AdvReac Type Severity Reaction Status Date / Time Penicillins Allergy Anaphylaxis Verified 12/11/24 10:03 diphenhydramine (From AdvReac Nightmare Verified 12/11/24 22:51 Benadryl) Active Medications: Current Medications Acetaminophen (Acetaminophen 325 Mg Tablet) 650 mg PO Q6H PRN PRN Reason: Pain, Mild 1-3,fever,headache Calcium Carbonate (Calcium Carbonate 750 Mg Tab.Chew) 750 mg PO Q4H PRN PRN Reason: Heartburn Dextrose (Dextrose 50 % 25 Gm/50 Ml Syringe) 25 gm IVPUSH Q15M PRN; Protocol PRN Reason: per Hypoglycemia Standing Ord. Glucose (Glucose Gel 15 Gm Gel..Gram.) 15 gm PO Q15M PRN; Protocol PRN Reason: per Hypoglycemia Standing Ord. Hydromorphone HCl (Hydromorphone Hcl 1 Mg/Ml Syringe) 1 mg IVPUSH Q4H PRN; Protocol PRN Reason: Pain, Severe (Pain Scale 7-10) Last Admin: 12/12/24 12:53 Dose: 1 mg Levofloxacin (Levaquin) 750 mg in 150 mls @ 100 mls/hr IV Q24H [facility] Last Admin: 12/12/24 16:03 Dose: 100 mls/hr Potassium Chloride (Potassium Chloride/H20) 10 meq in 100 mls @ 100 mls/hr IV Q1H [facility] Stop: 12/12/24 18:29 Last Infusion: 12/12/24 17:00 Dose: Infused Vancomycin HCl 750 mg/ Sodium (Chloride) 265 mls @ 265 mls/hr IV Q12H [facility] Insulin Human Lispro (Insulin Lispro 100 Unit/Ml 3 Ml Vial) 0 unit SUBCUT Q6H [facility]; Protocol Last Admin: 12/12/24 12:40 Dose: Not Given Magnesium Hydroxide (Milk Of Magnesia 30 Ml Oral.Susp) 30 ml PO DAILY PRN PRN Reason: Constipation Melatonin (Melatonin 3 Mg Tablet) 6 mg PO BEDTIME PRN PRN Reason: Insomnia Ondansetron HCl (Ondansetron Hcl 4 Mg/2 Ml Vial) 4 mg IVPUSH Q8H PRN PRN Reason: Nausea and Vomiting Pharmacy Consult (Consult Rx Vancomycin Dosing) 1 each MISCELLANE DAILY PRN PRN Reason: Consult order Sodium Chloride (0.9 % Sodium Chloride Flush 3 Ml Syringe) 3 ml IVFLUSH QSHIFT [facility] Last Admin: 12/12/24 16:03 Dose: 3 ml Home Medications ?Medication ?Instructions ?Recorded ?Confirmed ?Last Taken ?Type aluminum-mag hydroxide-simethicone 5 ml PO 5XD PRN Aci d Indigestion 12/11/24 12/11/24 Unknown History 200 mg-200 mg-20 mg/5 mL oral susp epinephrine 0.3 mg/0.3 mL 0.3 ml IM BID PRN Allergic R eaction 12/11/24 12/11/24 Unknown History injection, auto-injector furosemide 40 mg tablet 40 mg PO BID 12/11/2412/11/24 History insulin glargine 100 unit/mL (3 unit subcut 12/11/24 Unknown History mL) subcutaneous pen (Basaglar KwikPen U-100 Insulin) melatonin 3 mg tablet 3 mg PO BEDTIME PRN Sleep 12/11/24 Unknown History metformin 500 mg tablet 500 mg PO BID 12/11/2412/1112/11/24 History Exam Height,Weight and Vital Signs: Height 5 ft 9 in Weight 79 kg Last Vital Signs Temp 99 F 12/12/24 15:21 Pulse 98 12/12/24 15:21 Resp 18 12/12/24 15:21 BP 120/65 12/12/24 15:21 Pulse Ox 90 L 12/12/24 15:21 O2 Del Method Room Air 12/12/24 15:21 Pertinent Lab Results Pertinent Lab Results: Laboratory Tests 12/11/24 12/11/24 12/11/24 11:57 12:57 14:18 WBC 4.4 L RBC 3.98 L Hgb 11.9 L Hct 35.5 L MCV 89.2 MCH 29.9 MCHC 33.5 RDW 17.2 H Plt Count 122 L MPV 10.6 Immature Gran % (Auto) 0.5 H Neut % (Auto) 75.6 H Lymph % (Auto) 11.0 L [place] % (Auto) 11.7 H Eos % (Auto) 0.7 Baso % (Auto) 0.5 Lymph # (Auto) 0.5 L [place] # (Auto) 0.5 Eos # (Auto) 0.0 Baso # (Auto) 0.0 Abs Immat Gran (auto) 0.02 Absolute Neuts (auto) 3.4 Absolute Nucleated RBC 0.000 Nucleated RBC % (auto) 0.0 PT INR Sodium 133 L Potassium 2.9 L* Chloride 95 L Carbon Dioxide 28 Anion Gap 13 BUN 14 Creatinine 0.75 Estim Creat Clear Calc 119.1 Estimated GFR > 60 POC Glucose Random Glucose 411 H* Lactic Acid 3.9 H* Lactic Acid F/U @ 2Hr 3.1 H* Lactic Acid F/U @ 4Hr Calcium 7.9 L Magnesium 1.4 L* Total Bilirubin 6.9 H Direct Bilirubin AST 44 H ALT < 6 Alkaline Phosphatase 104 Ammonia 36 Troponin I High Sens 10.0 Total Protein 7.0 Albumin 2.3 L Lipase 80 H Urine Color DK YELLOW Urine Appearance Cloudy Urine pH 5.5 Ur Specific [place] 1.025 Urine Protein 100 (2+) H Urine Glucose (UA) >=1000 H Urine Ketones Negative Urine Blood Large (3+) H Urine Nitrite Negative Ur Leukocyte Esterase Negative Urine RBC >20 H Urine WBC 11-20 H Ur Squamous Epith Cells 6-10 Urine Bacteria None Seen Hyaline Casts 3-5 Random Vancomycin 12/11/24 12/11/24 12/11/24 15:45 17:03 19:36 WBC RBC Hgb Hct MCV MCH MCHC RDW Plt Count MPV Immature Gran % (Auto) Neut % (Auto) Lymph % (Auto) [place] % (Auto) Eos % (Auto) Baso % (Auto) Lymph # (Auto) [place] # (Auto) Eos # (Auto) Baso # (Auto) Abs Immat Gran (auto) Absolute Neuts (auto) Absolute Nucleated RBC Nucleated RBC % (auto) PT INR Sodium Potassium Chloride Carbon Dioxide Anion Gap BUN Creatinine Estim Creat Clear Calc Estimated GFR POC Glucose 363 H* 241 H Random Glucose Lactic Acid Lactic Acid F/U @ 2Hr Lactic Acid F/U @ 4Hr 3.0 H* Calcium Magnesium Total Bilirubin Direct Bilirubin AST ALT Alkaline Phosphatase Ammonia Troponin I High Sens Total Protein Albumin Lipase Urine Color Urine Appearance Urine pH Ur Specific [place] Urine Protein Urine Glucose (UA) Urine Ketones Urine Blood Urine Nitrite Ur Leukocyte Esterase Urine RBC Urine WBC Ur Squamous Epith Cells Urine Bacteria Hyaline Casts Random Vancomycin 12/12/24 12/12/24 12/12/24 00:58 05:35 06:02 WBC 4.5 L RBC 3.33 L Hgb 9.9 L Hct 29.9 L MCV 89.8 MCH 29.7 MCHC 33.1 RDW 17.4 H Plt Count 123 L MPV 10.7 Immature Gran % (Auto) 0.4 Neut % (Auto) 66.4 Lymph % (Auto) 16.4 L [place] % (Auto) 11.5 H Eos % (Auto) 4.4 H Baso % (Auto) 0.9 Lymph # (Auto) 0.7 L [place] # (Auto) 0.5 Eos # (Auto) 0.2 Baso # (Auto) 0.0 Abs Immat Gran (auto) 0.02 Absolute Neuts (auto) 3.0 Absolute Nucleated RBC 0.000 Nucleated RBC % (auto) 0.0 PT INR Sodium 135 Potassium 2.8 L* Chloride 97 Carbon Dioxide 30 H Anion Gap 11 L BUN 15 Creatinine 0.85 Estim Creat Clear Calc 105.1 Estimated GFR > 60 POC Glucose 158 H 136 H Random Glucose 134 H Lactic Acid Lactic Acid F/U @ 2Hr Lactic Acid F/U @ 4Hr Calcium 7.4 L D Magnesium 1.6 Total Bilirubin 7.3 H Direct Bilirubin 2.8 H AST 37 ALT < 6 Alkaline Phosphatase 86 Ammonia Troponin I High Sens Total Protein 6.3 L Albumin 2.0 L Lipase Urine Color Urine Appearance Urine pH Ur Specific [place] Urine Protein Urine Glucose (UA) Urine Ketones Urine Blood Urine Nitrite Ur Leukocyte Esterase Urine RBC Urine WBC Ur Squamous Epith Cells Urine Bacteria Hyaline Casts Random Vancomycin 12/12/24 12/12/24 12/12/24 07:27 12:31 13:34 WBC RBC Hgb Hct MCV MCH MCHC RDW Plt Count MPV Immature Gran % (Auto) Neut % (Auto) Lymph % (Auto) [place] % (Auto) Eos % (Auto) Baso % (Auto) Lymph # (Auto) [place] # (Auto) Eos # (Auto) Baso # (Auto) Abs Immat Gran (auto) Absolute Neuts (auto) Absolute Nucleated RBC Nucleated RBC % (auto) PT 21.2 H INR 1.8 H Sodium Potassium Chloride Carbon Dioxide Anion Gap BUN Creatinine Estim Creat Clear Calc Estimated GFR POC Glucose 133 H 121 H Random Glucose Lactic Acid Lactic Acid F/U @ 2Hr Lactic Acid F/U @ 4Hr Calcium Magnesium Total Bilirubin Direct Bilirubin AST ALT Alkaline Phosphatase Ammonia Troponin I High Sens Total Protein Albumin Lipase Urine Color Urine Appearance Urine pH Ur Specific [place] Urine Protein Urine Glucose (UA) Urine Ketones Urine Blood Urine Nitrite Ur Leukocyte Esterase Urine RBC Urine WBC Ur Squamous Epith Cells Urine Bacteria Hyaline Casts Random Vancomycin 12/12/24 14:57 WBC RBC Hgb Hct MCV MCH MCHC RDW Plt Count MPV Immature Gran % (Auto) Neut % (Auto) Lymph % (Auto) [place] % (Auto) Eos % (Auto) Baso % (Auto) Lymph # (Auto) [place] # (Auto) Eos # (Auto) Baso # (Auto) Abs Immat Gran (auto) Absolute Neuts (auto) Absolute Nucleated RBC Nucleated RBC % (auto) PT INR Sodium Potassium Chloride Carbon Dioxide Anion Gap BUN Creatinine Estim Creat Clear Calc Estimated GFR POC Glucose Random Glucose Lactic Acid Lactic Acid F/U @ 2Hr Lactic Acid F/U @ 4Hr Calcium Magnesium Total Bilirubin Direct Bilirubin AST ALT Alkaline Phosphatase Ammonia Troponin I High Sens Total Protein Albumin Lipase Urine Color Urine Appearance Urine pH Ur Specific [place] Urine Protein Urine Glucose (UA) Urine Ketones Urine Blood Urine Nitrite Ur Leukocyte Esterase Urine RBC Urine WBC Ur Squamous Epith Cells Urine Bacteria Hyaline Casts Random Vancomycin 19.6 Airway Mallampati Class: II TM Dist: >3cm Neck ROM: Full Loose/Missing/Broken Teeth: No Heart: RRR Lungs: CTAB Assessment and Plan Assessment Anesthesia Assessment: Anesthesia Plan Discussed and Chart Reviewed Final Anesthetic Review Family History of Problems with Anesthesia: No History of Problems with Anesthesia: No NPO: Yes ASA Class: III and Emergency Final Preanesthetic Review: No Changes in Pt Med Stat, Meds/Allgs Chart Reviewed, Consent Obtained/Reviewed and Anes Risks/Benef Reviewed Patient Risk: Intermediate Procedure Risk: Low Anesthetic Plan Anesthetic Plan: MAC: Disposition: Standard PACU
[2024-12-12 18:08] LABS: Potassium 3.3 mmol/L (3.3-5.1)
[2024-12-12 18:15] LABS: Glucose, Whole Blood 131 mg/dL (60-115)
--- NOTE | 2024-12-12 19:08 | W.PM.OPN ---
Operative Note Operative Note Date of Service: 12/12/24 Narrative: Preop diagnosis--incarcerated right inguinal hernia with small bowel Postop diagnosis-right inguinal hernia with small bowel Procedure--reduction of incarcerated right inguinal hernia Surgeon--[place] Anesthesia--general deep sedation Patient is a 48-year-old male with significant hepatic insufficiency meld score of 21 comes in with incarcerated right inguinal hernia partial obstruction with significant ascites and hydroceles bilaterally. Patient has had the hernia reduced in the past is very high-risk for any surgical intervention. He his trying to get on the liver transplant list in [place]. He is here working. Our goal today is to reduce the hernia and try to get him back home to see if he can have someone who will repair this for him. Procedure--patient was brought to the operative room placed in the OR bed and was sedated as per anesthesia. Please see anesthesia records for details. He was not intubated. He was placed with steep head-down and direct pressure was placed in the groin 1st in the scrotum moving the small bowel up into the inguinal canal area and then eventually with squeezing and palpating and massaging the area with sedation and the tilt we are able to mostly get this bowel reduced. Scrotum is still large with hydroceles and probable ascitic fluid coming down into the areas. Plan will be to keep the small bowel within the peritoneal cavity have the patient fly back to his home and discuss with surgical team there risks and benefits of him getting some type of hernia repair
[2024-12-12 23:42] LABS: Glucose, Whole Blood 148 mg/dL (60-115)
--- NOTE | 2024-12-13 01:28 | PC.NURSE ---
Pt noncompliant with clear liquid diet despite multiple reminders and education.
[2024-12-13 03:21] VITALS: BP 103/53; PULSE 85; RESP 18; TEMP 36.8; O2SAT 94
[2024-12-13 06:12] LABS: Glucose, Whole Blood 177 mg/dL (60-115)
[2024-12-13 06:24] LABS: Anion Gap 9 (12-20); Blood Urea Nitrogen 20 mg/dL (9-16); Calcium 6.9 mg/dL (8.4-10.2); Carbon Dioxide 29 mmol/L (22-29); Chloride 97 mmol/L (96-108); Creatinine Clr Calc Pharmacy 75.7; Estimated Glomerular Filt Rate > 60; Potassium 3.3 mmol/L (3.3-5.1); Sodium 132 mmol/L (135-145)
[2024-12-13 07:43] VITALS: BP 105/57; PULSE 86; RESP 16; TEMP 37.3; O2SAT 92
--- NOTE | 2024-12-13 07:55 | PM.PNGS ---
Subjective Subjective Date of Service: 12/13/24 <Adela Owens PA-C - Last Filed: 12/13/24 13:25> 12/14/24 <Ketty Wick MD - Last Filed: 12/14/24 07:26> Interval history: Overall reports pain is better but still around an 8/10. Continues to c/o pain at his right groin and into right scrotum. Denies passing flatus yet. Denies nausea. <Adela Owens PA-C - Last Filed: 12/13/24 13:25> Physical Exam Vital Signs: Vital Signs: Last Vital Signs Temp 99.1 F 12/13/24 07:43 Pulse 86 12/13/24 07:43 Resp 16 12/13/24 07:43 BP 105/57 L 12/13/24 07:43 Pulse Ox 92 12/13/24 07:43 O2 Del Method Room Air 12/13/24 07:43 O2 Flow Rate 2 12/12/24 19:15 BMI result Body Mass Index 25.7 <Adela Owens PA-C - Last Filed: 12/13/24 13:25> Const: Orientation/consciousness: patient oriented x3 <YAYA Petty Last Filed: 12/13/24 13:25> Resp: Effort & Inspection: normal respiratory effort <YAYA Petty Last Filed: 12/13/24 13:25> GI: Other: soft, reducible umbilical hernia right groin remains tender, maybe slightly improved <Adela Owens PA-C - Last Filed: 12/13/24 13:25> Inspection: No distended <YAYA Petty Last Filed: 12/13/24 13:25> Percussion: Yes normal to percussion <YAYA Petty Last Filed: 12/13/24 13:25> : Other: scrotum remains markedly enlarged, ecchymotic skin changes over posterior right scrotum <YAYA Petty Last Filed: 12/13/24 13:25> Neuro: General: patient oriented x3 and moves all extremities <Adela Owens PA-C - Last Filed: 12/13/24 13:25> Objective Data Active Medications Acetaminophen (Acetaminophen 325 Mg Tablet) 650 mg PO Q6H PRN PRN Reason: Pain, Mild 1-3,fever,headache Calcium Carbonate (Calcium Carbonate 750 Mg Tab.Chew) 750 mg PO Q4H PRN PRN Reason: Heartburn Dextrose (Dextrose 50 % 25 Gm/50 Ml Syringe) 25 gm IVPUSH Q15M PRN; Protocol PRN Reason: per Hypoglycemia Standing Ord. Glucose (Glucose Gel 15 Gm Gel..Gram.) 15 gm PO Q15M PRN; Protocol PRN Reason: per Hypoglycemia Standing Ord. Hydromorphone HCl (Hydromorphone Hcl 1 Mg/Ml Syringe) 1 mg IVPUSH Q4H PRN; Protocol PRN Reason: Pain, Severe (Pain Scale 7-10) Last Admin: 12/13/24 04:58 Dose: 1 mg Documented By: MARK Hydroxyzine HCl (Hydroxyzine Hcl 25 Mg Tablet) 25 mg PO Q8H PRN PRN Reason: Itching Last Admin: 12/13/24 05:46 Dose: 25 mg Documented By: MARK Levofloxacin (Levaquin) 750 mg in 150 mls @ 100 mls/hr IV Q24H [facility] Last Infusion: 12/12/24 17:42 Dose: Infused Documented By: SEAMUS Vancomycin HCl 750 mg/ Sodium (Chloride) 265 mls @ 265 mls/hr IV Q12H [facility] Last Infusion: 12/13/24 05:59 Dose: Infused Documented By: MARK Insulin Human Lispro (Insulin Lispro 100 Unit/Ml 3 Ml Vial) 0 unit SUBCUT Q6H [facility]; Protocol Last Admin: 12/13/24 06:20 Dose: Not Given Documented By: MARK Non-Admin Reason: diet order change Comments: Notified overnight provider that patient had diet change after surgery. Awaiting orders for QID sliding scale Magnesium Hydroxide (Milk Of Magnesia 30 Ml Oral.Susp) 30 ml PO DAILY PRN PRN Reason: Constipation Melatonin (Melatonin 3 Mg Tablet) 6 mg PO BEDTIME PRN PRN Reason: Insomnia Naloxone HCl (Naloxone Hcl 0.4 Mg/Ml Vial) 0.04 mg IVPUSH Q5M PRN PRN Reason: Excessive sedation or RR < 8 Ondansetron HCl (Ondansetron Hcl 4 Mg/2 Ml Vial) 4 mg IVPUSH Q8H PRN PRN Reason: Nausea and Vomiting Pharmacy Consult (Consult Rx Vancomycin Dosing) 1 each MISCELLANE DAILY PRN PRN Reason: Consult order Sodium Chloride (0.9 % Sodium Chloride Flush 3 Ml Syringe) [facility] Last Admin: 12/12/24 19:41 Dose: 3 ml Documented By: MARK <Adela Owens PA-C - Last Filed: 12/13/24 13:25> Labs CBC & Chem 7: 12/12/24 06:02 12/14/24 05:15 <Adela Owens PA-C - Last Filed: 12/13/24 13:25> Labs: Laboratory Results - last 24 hr 12/12/24 12/12/24 12/12/24 12:31 13:34 14:57 Hold Purple Top PT 21.2 H INR 1.8 H Anion Gap Estim Creat Clear Calc Estimated GFR POC Glucose 121 H Random Glucose Calcium Random Vancomycin 19.6 12/12/24 12/12/24 12/13/24 18:11 23:35 05:41 Hold Purple Top SEE NOTE PT INR Anion Gap 9 L Estim Creat Clear Calc 75.7 Estimated GFR > 60 POC Glucose 131 H 148 H Random Glucose 165 H Calcium 6.9 L D Random Vancomycin 12/13/24 06:08 Hold Purple Top PT INR Anion Gap Estim Creat Clear Calc Estimated GFR POC Glucose 177 H Random Glucose Calcium Random Vancomycin <Adela Owens PA-C - Last Filed: 12/13/24 13:25> Microbiology Microbiology Results: Microbiology 12/11/24 Unknown Urine Culture - Preliminary Urine clean catch - Clean Catch Midstream Culture in progress. <Adela Owens PA-C - Last Filed: 12/13/24 13:25> Procedures Date of Service Date of Service: 12/13/24 <Adela Owens PA-C - Last Filed: 12/13/24 13:25> 12/14/24 <Ketty Wick MD - Last Filed: 12/14/24 07:26> Progress Note: A&P Assessment and plan (1) Incarcerated right inguinal hernia: Status: Acute <Adela Owens PA-C - Last Filed: 12/13/24 13:25> (2) Hydrocele, left: Status: Acute <Adela Owens PA-C - Last Filed: 12/13/24 13:25> (3) Scrotal swelling: Status: Acute <Adela Owens PA-C - Last Filed: 12/13/24 13:25> Assessment and Plan: 48 year old male with alcoholic cirrhosis, moderate to severe hepatic insufficiency MELD score 21 with incarcerated right inguinal hernia, large hydrocele. Urology saw the patient yesterday and did not think the hydroceles are significant for drainage. He therefore underwent reduction of incarcerated right inguinal hernia under sedation yesterday. He continues to have markedly enlarged scrotum, possibly increased in size this morning and he thinks this is exacerbating his pain. He reports his scrotum is usually this size when his urologists at home tap it. Will ask urology to reassess or even IR for possible drainage. <Adela Owens PA-C - Last Filed: 12/13/24 13:25> 48 year old male with alcoholic cirrhosis, moderate to severe hepatic insufficiency MELD score 21 with incarcerated right inguinal hernia, large hydrocele. Urology saw the patient yesterday and did not think the hydroceles are significant for drainage. He therefore underwent reduction of incarcerated right inguinal hernia under sedation yesterday. He continues to have markedly enlarged scrotum, possibly increased in size this morning and he thinks this is exacerbating his pain. He reports his scrotum is usually this size when his urologists at home tap it. Will ask urology to reassess or even IR for possible drainage. pt doing better - feels like hernia is in - on exam no bowel noted in canal or scrotum but still with significant fluid. Plan is to carry out drainage of the scrotal fluid and potential paracentesis and then have the patient travel back to [place] and a dressings issues with his team there. He understands and agrees with the above plan. He is passing gas not nauseated abdomen is benign <Ketty Wick MD - Last Filed: 12/14/24 07:26> Time Spent With Patient Time: Total time managing care of this patient today ____ minutes. <Adela Owens PA-C - Last Filed: 12/13/24 13:25> Quality Stroke Does the patient have a stroke diagnosis?: No <Adela Owens PA-C - Last Filed: 12/13/24 13:25> VTE Prior VTE?: No <Adela Owens PA-C - Last Filed: 12/13/24 13:25> VTE Risk Level:: Medical - moderate - high <Adela Owens PA-C - Last Filed: 12/13/24 13:25> VTE Device Contraindication: N/A - Device Ordered <Adela Owens PA-C - Last Filed: 12/13/24 13:25> VTE Drug Contraindication: Treatment Not Indicated <Adela Owens PA-C - Last Filed: 12/13/24 13:25>
--- NOTE | 2024-12-13 09:22 | HO.POSTANES ---
Post Anesthesia Evaluation Post Anesthesia Evaluation Date of Service: 12/13/24 Vital Signs: Vital Signs Temp Pulse Resp BP Pulse Ox O2 Del Method 12/13/24 07:43 99.1 F 86 16 105/57 L 92 Room Air 12/13/24 03:21 98.2 F 85 18 103/53 L 94 Room Air 12/12/24 23:23 98.4 F 86 18 114/55 L 95 Room Air Anesthesia: Monitored Mental Status: Awake Pain Control: Satisfactory Nausea/Vomiting: None Hydration: Adequate Anesthesia-Related Issues: No Anes. Related Issues
[2024-12-13] MEDS: 0.9 % Sodium Chloride Flush 3 ML SYRINGE IVFLUSH ×3 (09:32→20:32)
--- NOTE | 2024-12-13 10:26 | MHC.CM.PN ---
Per MD rounds patient not medically cleared for dc. CM will continue to follow.
[2024-12-13 11:43] LABS: Glucose, Whole Blood 122 mg/dL (60-115)
--- NOTE | 2024-12-13 11:58 | HO.PM.IMPN ---
Subjective Subjective Date of Service: 12/13/24 Interval History: Patient underwent reduction of incarcerated right inguinal hernia. No significant nursing events overnight. Continues to have scrotal discomfort Constitutional Constitutional: Reports no additional constitutional complaints Cardiovascular Cardiovascular: Reports no additional cardiovascular complaints Respiratory Respiratory: Reports no additional respiratory complaints Gastrointestinal Gastrointestinal: Reports no additional gastrointestinal complaints Genitourinary Genitourinary: Reports scrotal swelling and Reports testicular pain Physical Exam Vital Signs: Vital Signs: Last Vital Signs Temp 99.1 F 12/13/24 07:43 Pulse 86 12/13/24 07:43 Resp 16 12/13/24 07:43 BP 105/57 L 12/13/24 07:43 Pulse Ox 92 12/13/24 07:43 O2 Del Method Room Air 12/13/24 07:43 O2 Flow Rate 2 12/12/24 19:15 BMI result Body Mass Index 25.7 Middle-aged male lying in bed in distress Neck supple, no JVD Regular rate and rhythm, S1-S2 heard Regular breath sounds bilaterally, no wheezing or crackles appreciated Abdomen with mild distention, no tenderness, no guarding Bilateral testicular swelling with tenderness Patient is awake, alert and oriented to self, place, time and person ; no focal motor deficit Psych: Normal mood Objective Data Active Medications Acetaminophen (Acetaminophen 325 Mg Tablet) 650 mg PO Q6H PRN PRN Reason: Pain, Mild 1-3,fever,headache Calcium Carbonate (Calcium Carbonate 750 Mg Tab.Chew) 750 mg PO Q4H PRN PRN Reason: Heartburn Dextrose (Dextrose 50 % 25 Gm/50 Ml Syringe) 25 gm IVPUSH Q15M PRN; Protocol PRN Reason: per Hypoglycemia Standing Ord. Glucose (Glucose Gel 15 Gm Gel..Gram.) 15 gm PO Q15M PRN; Protocol PRN Reason: per Hypoglycemia Standing Ord. Hydromorphone HCl (Hydromorphone Hcl 1 Mg/Ml Syringe) 1 mg IVPUSH Q4H PRN; Protocol PRN Reason: Pain, Severe (Pain Scale 7-10) Last Admin: 12/13/24 09:31 Dose: 1 mg Documented By: SO Hydroxyzine HCl (Hydroxyzine Hcl 25 Mg Tablet) 25 mg PO Q8H PRN PRN Reason: Itching Last Admin: 12/13/24 05:46 Dose: 25 mg Documented By: MARK Levofloxacin (Levaquin) 750 mg in 150 mls @ 100 mls/hr IV Q24H [facility] Last Infusion: 12/12/24 17:42 Dose: Infused Documented By: SEAMUS Vancomycin HCl 750 mg/ Sodium (Chloride) 265 mls @ 265 mls/hr IV Q12H [facility] Last Infusion: 12/13/24 05:59 Dose: Infused Documented By: MARK Insulin Human Lispro (Insulin Lispro 100 Unit/Ml 3 Ml Vial) 0 unit SUBCUT Q6H [facility]; Protocol Last Admin: 12/13/24 06:20 Dose: Not Given Documented By: MARK Non-Admin Reason: diet order change Comments: Notified overnight provider that patient had diet change after surgery. Awaiting orders for QID sliding scale Magnesium Hydroxide (Milk Of Magnesia 30 Ml Oral.Susp) 30 ml PO DAILY PRN PRN Reason: Constipation Melatonin (Melatonin 3 Mg Tablet) 6 mg PO BEDTIME PRN PRN Reason: Insomnia Naloxone HCl (Naloxone Hcl 0.4 Mg/Ml Vial) 0.04 mg IVPUSH Q5M PRN PRN Reason: Excessive sedation or RR < 8 Ondansetron HCl (Ondansetron Hcl 4 Mg/2 Ml Vial) 4 mg IVPUSH Q8H PRN PRN Reason: Nausea and Vomiting Pharmacy Consult (Consult Rx Vancomycin Dosing) 1 each MISCELLANE DAILY PRN PRN Reason: Consult order Sodium Chloride (0.9 % Sodium Chloride Flush 3 Ml Syringe) 3 ml IVFLUSH QSHIFT [facility] Last Admin: 12/13/24 09:32 Dose: 3 ml Documented By: SO Labs 12/12/24 06:02 12/13/24 05:41 Labs: Laboratory Results - last 24 hr 12/12/24 12/12/24 12/12/24 12:31 13:34 14:57 Hold Purple Top PT 21.2 H INR 1.8 H Anion Gap Estim Creat Clear Calc Estimated GFR POC Glucose 121 H Random Glucose Calcium Random Vancomycin 19.6 12/12/24 12/12/24 12/13/24 18:11 23:35 05:41 Hold Purple Top SEE NOTE PT INR Anion Gap 9 L Estim Creat Clear Calc 75.7 Estimated GFR > 60 POC Glucose 131 H 148 H Random Glucose 165 H Calcium 6.9 L D Random Vancomycin 12/13/24 12/13/24 06:08 11:39 Hold Purple Top PT INR Anion Gap Estim Creat Clear Calc Estimated GFR POC Glucose 177 H 122 H Random Glucose Calcium Random Vancomycin Microbiology Microbiology Results: Microbiology 12/11/24 Unknown Urine Culture - Preliminary Urine clean catch - Clean Catch Midstream Staphylococcus species Streptococcus viridans group Assessment and Plan (1) Incarcerated right inguinal hernia: Status: Acute (2) Hydrocele, left: Status: Acute Plan This is a 48-year-old male with pertinent history of alcohol use disorder, now in remission with alcoholic cirrhosis, insulin-dependent diabetes mellitus who presents to the emergency department for evaluation of testicular pain. #. Incarcerated right inguinal hernia with hydrocele: Hernia reduced by General surgery on 12/12. Will consult IR to drain hydrocele. Patient on empiric IV antibiotics #. Alcoholic cirrhosis: Continue home diuretics #. Hypokalemia and hypomagnesemia: Repleted #. Insulin-dependent type 2 diabetes mellitus: Initiating Accu-Cheks sliding scale insulin every 6 hours #. Acute lactic acidosis: Due to metformin use. No sepsis Med rec pending DVT prophylaxis: SCDs Full code Reason for continued hospitalization: Ongoing scrotal discomfort which will require drainage. Consulted IR Quality Stroke Does the patient have a stroke diagnosis?: No VTE Prior VTE?: No VTE Risk Level:: Medical - moderate - high VTE Device Contraindication: N/A - Device Ordered VTE Drug Contraindication: Treatment Not Indicated
[2024-12-13 15:24] VITALS: BP 104/51; PULSE 90; RESP 16; TEMP 36.7; O2SAT 93
[2024-12-13 17:59] LABS: Glucose, Whole Blood 176 mg/dL (60-115)
[2024-12-13 19:37] VITALS: BP 104/58; PULSE 86; RESP 18; TEMP 36.3; O2SAT 92
[2024-12-14 00:12] LABS: Glucose, Whole Blood 182 mg/dL (60-115)
[2024-12-14 00:55] VITALS: RESP 18
[2024-12-14 03:39] VITALS: BP 123/60; PULSE 80; RESP 17; TEMP 36.4; O2SAT 97
[2024-12-14 05:19] VITALS: RESP 18
[2024-12-14 05:38] LABS: Creatinine Clr Calc Pharmacy 65.2; Estimated Glomerular Filt Rate 55
[2024-12-14 06:25] LABS: Glucose, Whole Blood 152 mg/dL (60-115)
[2024-12-14 07:36] VITALS: BP 111/59; PULSE 79; RESP 16; TEMP 37; O2SAT 94
[2024-12-14] MEDS: 0.9 % Sodium Chloride Flush 3 ML SYRINGE IVFLUSH ×3 (08:38→20:08)
--- NOTE | 2024-12-14 09:02 | P.PNGS_ITS ---
Subjective Subjective Date of Service: 12/14/24 Interval history: Paracentesis attempted yesterday however no significant intraabdominal ascites, plan for attempt of scrotal drainage today with IR. Continues to c/o scrotal pain and heaviness. Has been OOB and ambulating to bathroom. Physical Exam 2 Vital Signs: Vital Signs: Last Vital Signs Temp 98.6 F 12/14/24 07:36 Pulse 79 12/14/24 07:36 Resp 16 12/14/24 07:36 BP 111/59 L 12/14/24 07:36 Pulse Ox 94 12/14/24 07:36 O2 Del Method Room Air 12/14/24 07:36 O2 Flow Rate 2 12/12/24 19:15 BMI result Body Mass Index 25.7 Const: General: comfortable, no acute distress and alert O rientation/consciousness: patient oriented x3 Resp: Effort & Inspection: normal respiratory effort GI: Other: abd slightly more full this morning, mildly distended umbilical hernia soft, reducible right groin with very mild tenderness scrotum remains markedly enlarged and fluid filled Skin: General skin exam: jaundice Neuro: General: patient oriented x3 and moves all extremities Objective Data Active Medications Acetaminophen (Acetaminophen 325 Mg Tablet) 650 mg PO Q6H PRN PRN Reason: Pain, Mild 1-3,fever,headache Calcium Carbonate (Calcium Carbonate 750 Mg Tab.Chew) 750 mg PO Q4H PRN PRN Reason: Heartburn Dextrose (Dextrose 50 % 25 Gm/50 Ml Syringe) 25 gm IVPUSH Q15M PRN; Protocol PRN Reason: per Hypoglycemia Standing Ord. Furosemide (Furosemide 40 Mg Tablet) 40 mg PO BID [facility]; Protocol Last Admin: 12/13/24 20:30 Dose: 40 mg Documented By: CEZAR Glucose (Glucose Gel 15 Gm Gel..Gram.) 15 gm PO Q15M PRN; Protocol PRN Reason: per Hypoglycemia Standing Ord. Hydromorphone HCl (Hydromorphone Hcl 1 Mg/Ml Syringe) 1 mg IVPUSH Q4H PRN; Protocol PRN Reason: Pain, Severe (Pain Scale 7-10) Last Admin: 12/14/24 05:19 Dose: 1 mg Documented By: CEZAR Hydroxyzine HCl (Hydroxyzine Hcl 25 Mg Tablet) 25 mg PO Q8H PRN PRN Reason: Itching Last Admin: 12/14/24 08:33 Dose: 25 mg Documented By: LAUREN Levofloxacin (Levaquin) 750 mg in 150 mls @ 100 mls/hr IV Q24H [facility] Last Infusion: 12/13/24 17:40 Dose: Infused Documented By: SO Vancomycin HCl 750 mg/ Sodium (Chloride) 265 mls @ 265 mls/hr IV Q12H [facility] Last Infusion: 12/14/24 06:10 Dose: Infused Documented By: CEZAR Insulin Human Lispro (Insulin Lispro 100 Unit/Ml 3 Ml Vial) 0 unit SUBCUT Q6H [facility]; Protocol Last Admin: 12/14/24 06:27 Dose: Not Given Documented By: CEZAR Non-Admin Reason: No Insulin Coverage Comments: poc 152, NPO for procedure, per Hospitalist hold 2 units coverage Magnesium Hydroxide (Milk Of Magnesia 30 Ml Oral.Susp) 30 ml PO DAILY PRN PRN Reason: Constipation Melatonin (Melatonin 3 Mg Tablet) 6 mg PO BEDTIME PRN PRN Reason: Insomnia Naloxone HCl (Naloxone Hcl 0.4 Mg/Ml Vial) 0.04 mg IVPUSH Q5M PRN PRN Reason: Excessive sedation or RR < 8 Ondansetron HCl (Ondansetron Hcl 4 Mg/2 Ml Vial) 4 mg IVPUSH Q8H PRN PRN Reason: Nausea and Vomiting Pharmacy Consult (Consult Rx Vancomycin Dosing) 1 each MISCELLANE DAILY PRN PRN Reason: Consult order Sodium Chloride (0.9 % Sodium Chloride Flush 3 Ml Syringe) 3 ml IVFLUSH QSHIFT [facility] Last Admin: 12/14/24 08:38 Dose: 3 ml Documented By: LAUREN Labs 12/12/24 06:02 12/14/24 05:15 Labs: Laboratory Results - last 24 hr 12/13/24 12/13/24 12/13/24 11:39 15:06 17:39 Hold Purple Top Estim Creat Clear Calc Estimated GFR POC Glucose 122 H 176 H Random Vancomycin 15.9 12/14/24 12/14/24 12/14/24 00:08 05:15 06:21 Hold Purple Top SEE NOTE Estim Creat Clear Calc 65.2 Estimated GFR 55 POC Glucose 182 H 152 H Random Vancomycin Microbiology Microbiology Results: Microbiology 12/11/24 Unknown Urine Culture - Final Urine clean catch - Clean Catch Midstream Staphylococcus aureus Streptococcus viridans group Procedures Date of Service Date of Service: 12/14/24 Progress Note: A&P Assessment and plan (1) Incarcerated right inguinal hernia: Status: Acute (2) Hydrocele, left: Status: Acute Plan Plan for scrotal drainage with IR today. Advance diet as tolerated following. He will follow up with his care team back in [place] regarding his right inguinal hernia and hydrocele. Time Spent With Patient Time: Total time managing care of this patient today ____ minutes. Quality Stroke Does the patient have a stroke diagnosis?: No VTE Prior VTE?: No VTE Risk Level:: Medical - moderate - high VTE Device Contraindication: N/A - Device Ordered VTE Drug Contraindication: Treatment Not Indicated
--- NOTE | 2024-12-14 09:19 | P.CDIM_ITS ---
PROVIDER RESPONSE TEXT: To clarify, the appropriate diagnosis supported by the clinical indicators: Pancytopenia: suspected QUERY TEXT: PHYSICIAN'S DOCUMENTATION REQUEST Date of Query: 12/14/2024 08:33 AM EDT Patient Name: Low Landry Admit Date: 12/11/2024 Dear Marian Lopez MD, A review of the medical record indicates additional documentation may be needed. Please review below and update the documentation accordingly. Clinical Indicators: LABS: WBC 4.5 RBC 3.33 PLT 123 L Alcoholic Cirrhosis, now in remission, on transplantation list. Anemia. Based on the above, could you clarify if there is a diagnosis that correlates with these findings? Pancytopenia possible, probable, suspected, cannot rule out etc. Labs indicate a diagnosis of (please specify) Other (explain) Clinically unable to determine (explain) Thank you, Ayla Boyer, CCS, CDIS Use of terms such as suspected, likely, concern for, or probable (associated with a specific diagnosis that is being evaluated, monitored, or treated as if it exists) are acceptable and can be coded in the inpatient setting, when documented at the time of discharge. Please use your independent medical judgment in providing your response. THIS QUERY IS PART OF THE PERMANENT MEDICAL RECORD
--- NOTE | 2024-12-14 11:19 | MHC.CM.PN ---
Addendum entered by Shayy Garrison 12/14/24 14:55: Per RN patient will not discharge after the procedure today. DP DC home tomorrow, Car is in [facility] lot. Original Note: Per MD round, patient may discharge today. He is scheduled for a procedure today: Drain Hydrocele. DP Home self care. Pts car is in [employer] lot. He may need assist with transportation.
[2024-12-14 11:37] LABS: Glucose, Whole Blood 161 mg/dL (60-115)
--- NOTE | 2024-12-14 13:33 | PC.NURSE ---
Pt with scrotal edema, awaiting scrotal drainage in IR. NPO maintained. Medicated with dilaudid for pain with good effect per MAR
--- NOTE | 2024-12-14 14:47 | HO.PM.IMPN ---
Subjective Subjective Date of Service: 12/14/24 Interval History: No significant nursing events overnight. Continues to have scrotal discomfort. Awaiting drainage of hydrocele by IR today Constitutional Constitutional: Reports no additional constitutional complaints Cardiovascular Cardiovascular: Reports no additional cardiovascular complaints Respiratory Respiratory: Reports no additional respiratory complaints Gastrointestinal Gastrointestinal: Reports no additional gastrointestinal complaints Genitourinary Genitourinary: Reports scrotal swelling and Reports testicular pain Physical Exam Vital Signs: Vital Signs: Last Vital Signs Temp 98.6 F 12/14/24 07:36 Pulse 79 12/14/24 07:36 Resp 16 12/14/24 07:36 BP 111/59 L 12/14/24 07:36 Pulse Ox 94 12/14/24 07:36 O2 Del Method Room Air 12/14/24 07:36 O2 Flow Rate 2 12/12/24 19:15 BMI result Body Mass Index 25.7 Const: Other: Middle-aged male lying in bed in distress Neck supple, no JVD Regular rate and rhythm, S1-S2 heard Regular breath sounds bilaterally, no wheezing or crackles appreciated Abdomen with mild distention, no tenderness, no guarding Bilateral testicular swelling with tenderness Patient is awake, alert and oriented to self, place, time and person ; no focal motor deficit Psych: Normal mood Objective Data Active Medications Acetaminophen (Acetaminophen 325 Mg Tablet) 650 mg PO Q6H PRN PRN Reason: Pain, Mild 1-3,fever,headache Calcium Carbonate (Calcium Carbonate 750 Mg Tab.Chew) 750 mg PO Q4H PRN PRN Reason: Heartburn Dextrose (Dextrose 50 % 25 Gm/50 Ml Syringe) 25 gm IVPUSH Q15M PRN; Protocol PRN Reason: per Hypoglycemia Standing Ord. Furosemide (Furosemide 40 Mg Tablet) 40 mg PO BID COUNT INCLUDES THE [facility]; Protocol Last Admin: 12/14/24 11:26 Dose: Not Given Documented By: LAUREN Non-Admin Reason: NPO Glucose (Glucose Gel 15 Gm Gel..Gram.) 15 gm PO Q15M PRN; Protocol PRN Reason: per Hypoglycemia Standing Ord. Hydromorphone HCl (Hydromorphone Hcl 1 Mg/Ml Syringe) 1 mg IVPUSH Q4H PRN; Protocol PRN Reason: Pain, Severe (Pain Scale 7-10) Last Admin: 12/14/24 13:27 Dose: 1 mg Documented By: LAUREN Hydroxyzine HCl (Hydroxyzine Hcl 25 Mg Tablet) 25 mg PO Q8H PRN PRN Reason: Itching Last Admin: 12/14/24 08:33 Dose: 25 mg Documented By: LAUREN Levofloxacin (Levaquin) 750 mg in 150 mls @ 100 mls/hr IV Q24H COUNT INCLUDES THE [facility] Last Infusion: 12/13/24 17:40 Dose: Infused Documented By: SO Vancomycin HCl 750 mg/ Sodium (Chloride) 265 mls @ 265 mls/hr IV Q12H COUNT INCLUDES THE [facility] Last Infusion: 12/14/24 06:10 Dose: Infused Documented By: CEZAR Insulin Human Lispro (Insulin Lispro 100 Unit/Ml 3 Ml Vial) 0 unit SUBCUT Q6H COUNT INCLUDES THE [facility]; Protocol Last Admin: 12/14/24 11:42 Dose: Not Given Documented By: LAUREN Non-Admin Reason: NPO Magnesium Hydroxide (Milk Of Magnesia 30 Ml Oral.Susp) 30 ml PO DAILY PRN PRN Reason: Constipation Melatonin (Melatonin 3 Mg Tablet) 6 mg PO BEDTIME PRN PRN Reason: Insomnia Naloxone HCl (Naloxone Hcl 0.4 Mg/Ml Vial) 0.04 mg IVPUSH Q5M PRN PRN Reason: Excessive sedation or RR < 8 Ondansetron HCl (Ondansetron Hcl 4 Mg/2 Ml Vial) 4 mg IVPUSH Q8H PRN PRN Reason: Nausea and Vomiting Pharmacy Consult (Consult Rx Vancomycin Dosing) 1 each MISCELLANE DAILY PRN PRN Reason: Consult order Sodium Chloride (0.9 % Sodium Chloride Flush 3 Ml Syringe) 3 ml IVFLUSH QSHIFT COUNT INCLUDES THE [facility] Last Admin: 12/14/24 08:38 Dose: 3 ml Documented By: LAUREN Labs 12/12/24 06:02 12/14/24 05:15 Labs: Laboratory Results - last 24 hr 12/13/24 12/13/24 12/14/24 15:06 17:39 00:08 Hold Purple Top Estim Creat Clear Calc Estimated GFR POC Glucose 176 H 182 H Random Vancomycin 15.9 12/14/24 12/14/24 12/14/24 05:15 06:21 11:32 Hold Purple Top SEE NOTE Estim Creat Clear Calc 65.2 Estimated GFR 55 POC Glucose 152 H 161 H Random Vancomycin Microbiology Microbiology Results: Microbiology 12/11/24 Unknown Urine Culture - Final Urine clean catch - Clean Catch Midstream Staphylococcus aureus Streptococcus viridans group Assessment and Plan (1) Inguinal hernia: Status: Acute (2) Hydrocele, left: Status: Acute Plan This is a 48-year-old male with pertinent history of alcohol use disorder, now in remission with alcoholic cirrhosis, insulin-dependent diabetes mellitus who presents to the emergency department for evaluation of testicular pain. #. Incarcerated right inguinal hernia with hydrocele: Hernia reduced by General surgery on 12/12. Awaiting IR drainage of hydrocele. Patient on empiric IV antibiotics #. Alcoholic cirrhosis: Continue home diuretics #. Hypokalemia and hypomagnesemia: Repleted #. Insulin-dependent type 2 diabetes mellitus: Initiating Accu-Cheks sliding scale insulin every 6 hours #. Acute lactic acidosis: Due to metformin use. No sepsis Med rec pending DVT prophylaxis: SCDs Full code Reason for continued hospitalization: Ongoing scrotal discomfort which will require drainage. Awaiting consult Quality Stroke Does the patient have a stroke diagnosis?: No VTE Prior VTE?: No VTE Risk Level:: Medical - moderate - high VTE Device Contraindication: N/A - Device Ordered VTE Drug Contraindication: Treatment Not Indicated
[2024-12-14 15:37] VITALS: BP 106/58; PULSE 75; RESP 18; TEMP 37.2; O2SAT 94
[2024-12-14] MEDS: Lidocaine HCl 1 % MPF 5 ML VIAL SUBCUT (16:32)
--- NOTE | 2024-12-14 16:50 | HE.PHANOTE ---
RE COURT Patients level came back this morning at 16.1, will continue with current dose. Next level to be pulled tomorrow 12/15 @ 1500
[2024-12-14 18:03] LABS: Glucose, Whole Blood 143 mg/dL (60-115)
[2024-12-14 19:35] VITALS: BP 105/53; PULSE 77; RESP 18; TEMP 37.1; O2SAT 96
[2024-12-14 23:59] LABS: Glucose, Whole Blood 165 mg/dL (60-115)
[2024-12-15 02:31] VITALS: BP 144/70; PULSE 89; RESP 16; TEMP 36.8; O2SAT 94
[2024-12-15 04:00] VITALS: RESP 16
[2024-12-15 06:31] LABS: Glucose, Whole Blood 195 mg/dL (60-115)
[2024-12-15 06:40] LABS: Creatinine Clr Calc Pharmacy 63.8; Estimated Glomerular Filt Rate 54
[2024-12-15 07:05] VITALS: BP 109/55; PULSE 74; RESP 16; TEMP 37.3; O2SAT 95
[2024-12-15] MEDS: 0.9 % Sodium Chloride Flush 3 ML SYRINGE IVFLUSH (07:21)
--- NOTE | 2024-12-15 08:58 | P.CDIM_ITS ---
PROVIDER RESPONSE TEXT: To clarify, the appropriate diagnosis supported by the clinical indicators: Alcoholic Cirrhosis with Ascites: possible QUERY TEXT: PHYSICIAN'S DOCUMENTATION REQUEST Date of Query: 12/15/2024 08:02 AM EDT Patient Name: Low Landry Admit Date: 12/11/2024 Dear Marian Lopez MD, A review of the medical record indicates additional documentation may be needed. Please review below and update the documentation accordingly. Clinical Indicators: CT Scan 12/11/24 - Impression: Colonic mucosa mildly prominent. This probably secondary to cirrhosis, ascites and hypoalbuminemia. Cirrhosis and portal hypertension. There is a small nodular liver with moderate ascites. Based on the above, could you clarify any further specificity to the Cirrhosis and if agree please place this diagnosis within your progress note: Alcoholic Cirrhosis with Ascites possible, probable, suspected, cannot rule out etc. Alcoholic Cirrhosis without Ascites Other (explain) Clinically unable to determine (explain) Thank you, Ayla Boyer, CCS, CDIS Use of terms such as suspected, likely, concern for, or probable (associated with a specific diagnosis that is being evaluated, monitored, or treated as if it exists) are acceptable and can be coded in the inpatient setting, when documented at the time of discharge. Please use your independent medical judgment in providing your response. THIS QUERY IS PART OF THE PERMANENT MEDICAL RECORD
[2024-12-15 09:21] VITALS: BP 107/58
--- NOTE | 2024-12-15 09:45 | P.PNGS_ITS ---
Subjective Subjective Date of Service: 12/15/24 Interval history: Scrotal fullness and pain. Denies nausea or vomiting. Physical Exam 2 Vital Signs: Vital Signs: Last Vital Signs Temp 99.1 F 12/15/24 07:05 Pulse 74 12/15/24 07:05 Resp 16 12/15/24 07:05 BP 107/58 L 12/15/24 09:21 Pulse Ox 95 12/15/24 07:05 O2 Del Method Room Air 12/15/24 07:05 O2 Flow Rate 2 12/12/24 19:15 BMI result Body Mass Index 25.7 Const: General: no acute distress Nutritional Appearance: well nourished Orientation/consciousness: patient oriented x3 Resp: Effort & Inspection: normal respiratory effort : Other: Bilateral hydrocele, equally swollen bilaterally Neuro: General: patient oriented x3 Objective Data Active Medications Acetaminophen (Acetaminophen 325 Mg Tablet) 650 mg PO Q6H PRN PRN Reason: Pain, Mild 1-3,fever,headache Calcium Carbonate (Calcium Carbonate 750 Mg Tab.Chew) 750 mg PO Q4H PRN PRN Reason: Heartburn Dextrose (Dextrose 50 % 25 Gm/50 Ml Syringe) 25 gm IVPUSH Q15M PRN; Protocol PRN Reason: per Hypoglycemia Standing Ord. Furosemide (Furosemide 40 Mg Tablet) 40 mg PO BID [facility]; Protocol Last Admin: 12/15/24 09:21 Dose: 40 mg Documented By: LAUREN Glucose (Glucose Gel 15 Gm Gel..Gram.) 15 gm PO Q15M PRN; Protocol PRN Reason: per Hypoglycemia Standing Ord. Hydromorphone HCl (Hydromorphone Hcl 1 Mg/Ml Syringe) 1 mg IVPUSH Q4H PRN; Protocol PRN Reason: Pain, Severe (Pain Scale 7-10) Last Admin: 12/15/24 07:21 Dose: 1 mg Documented By: LAUREN Hydroxyzine HCl (Hydroxyzine Hcl 25 Mg Tablet) 25 mg PO Q8H PRN PRN Reason: Itching Last Admin: 12/15/24 06:10 Dose: 25 mg Documented By: RUBI Levofloxacin (Levaquin) 750 mg in 150 mls @ 100 mls/hr IV Q24H [facility] Last Infusion: 12/14/24 17:04 Dose: Infused Documented By: HO.LAPOINM Vancomycin HCl 750 mg/ Sodium (Chloride) 265 mls @ 265 mls/hr IV Q12H [facility] Last Infusion: 12/15/24 06:55 Dose: Infused Documented By: RUBI Insulin Human Lispro (Insulin Lispro 100 Unit/Ml 3 Ml Vial) 0 unit SUBCUT Q6H [facility]; Protocol Last Admin: 12/15/24 06:42 Dose: 4 unit Documented By: RUBI Magnesium Hydroxide (Milk Of Magnesia 30 Ml Oral.Susp) 30 ml PO DAILY PRN PRN Reason: Constipation Melatonin (Melatonin 3 Mg Tablet) 6 mg PO BEDTIME PRN PRN Reason: Insomnia Last Admin: 12/14/24 17:52 Dose: 6 mg Documented By: MARYBETH Naloxone HCl (Naloxone Hcl 0.4 Mg/Ml Vial) 0.04 mg IVPUSH Q5M PRN PRN Reason: Excessive sedation or RR < 8 Ondansetron HCl (Ondansetron Hcl 4 Mg/2 Ml Vial) 4 mg IVPUSH Q8H PRN PRN Reason: Nausea and Vomiting Pharmacy Consult (Consult Rx Vancomycin Dosing) 1 each MISCELLANE DAILY PRN PRN Reason: Consult order Sodium Chloride (0.9 % Sodium Chloride Flush 3 Ml Syringe) 3 ml IVFLUSH QSHIFT [facility] Last Admin: 12/15/24 07:21 Dose: 3 ml Documented By: LAUREN Labs 12/12/24 06:02 12/15/24 05:53 Labs: Laboratory Results - last 24 hr 12/14/24 12/14/24 12/14/24 11:32 14:54 17:59 Estim Creat Clear Calc Estimated GFR POC Glucose 161 H 143 H Random Vancomycin 16.1 12/14/24 12/15/24 12/15/24 23:53 05:53 06:26 Estim Creat Clear Calc 63.8 Estimated GFR 54 POC Glucose 165 H 195 H Random Vancomycin Microbiology Microbiology Results: Microbiology 12/11/24 Unknown Urine Culture - Final Urine clean catch - Clean Catch Midstream Staphylococcus aureus Streptococcus viridans group Procedures Date of Service Date of Service: 12/15/24 Progress Note: A&P Assessment and plan (1) Scrotal swelling: Status: Acute (2) Testicular pain: Status: Acute Plan Patient awaiting additional drainage of scrotal hydrocele at . Patient to follow up with surgeons at [place]. Time Spent With Patient Time: Total time managing care of this patient today ____ minutes. Quality Stroke Does the patient have a stroke diagnosis?: No VTE Prior VTE?: No VTE Risk Level:: Medical - moderate - high VTE Device Contraindication: N/A - Device Ordered VTE Drug Contraindication: Treatment Not Indicated
[2024-12-15 11:37] LABS: Glucose, Whole Blood 258 mg/dL (60-115)
--- NOTE | 2024-12-15 14:04 | P.DS_ITS ---
DS: Providers Provider Date of Service: 12/15/24 Date of admission: 12/11/24 14:44 Date of discharge: 12/15/24 Primary care physician: Unknown Physician Consults: 12/11/24 15:28 Consult to General Surgery [place]ine [place] [facility] [place] Reason for consultation: hernia involving ileum with partial obstruction Consult to Urology Routine Consulting [place] [facility] [place] Reason for consultation: hydrocele DS: Diagnosis Discharge Diagnosis (1) Scrotal swelling: Status: Acute (2) Testicular pain: Status: Acute DS: Summary Hospital Course Hospital Course: HPI:This is a 48-year-old male with pertinent history of alcohol use disorder, now in remission with alcoholic cirrhosis, insulin-dependent diabetes mellitus who presents to the emergency department for evaluation of testicular pain. Patient states his symptoms started on the day of presentation. He felt a sharp pain in his bilateral testicles and noticed testicular swelling. Does have a history of inguinal hernia and hydrocele. Pain is worse in upright position. No fever, chills, nausea, vomiting. Denies chest pain, palpitations, changes in bowel habits In the emergency department, imaging with probable bowel loops within the right scrotum, multiloculated complex cyst in the right scrotum and small left hydrocele with cyst-like structure measuring 4 x 8 x 2.8 cm. General surgery was consulted who requested admission to medicine team. Hospital course: Patient was admitted for incarcerated right inguinal hernia with hydrocele. General surgery was consulted and hernia was reduced on 12/12. Patient to follow-up with his outpatient surgeon for follow-up and management of right inguinal hernia. IR was consulted for drainage of hydrocele. Patient with marked improvement of symptoms and relief of scrotal discomfort and pain prior to discharge. Patient to follow-up outpatient with Urology and General surgery for definitive treatment of hydrocele and right inguinal hernia respectively. Also concern for scrotal cellulitis and patient be discharged with a prescription of doxycycline Status at Discharge Functional status at discharge: independent ambulation Overall status at discharge: patient is back to baseline Time Attestation Discharge Coordination Time (in mins): Forty Quality: Safe Use of Opioids Does Pt have an Active Cancer Diagnosis on the Problem List?: No Quality: Stroke Does the patient have a stroke diagnosis?: No Physical Exam Vital Signs: Vital Signs: Last Vital Signs Temp 99.1 F 12/15/24 07:05 Pulse 74 12/15/24 07:05 Resp 16 12/15/24 07:05 BP 107/58 L 12/15/24 09:21 Pulse Ox 95 12/15/24 07:05 O2 Del Method Room Air 12/15/24 07:05 O2 Flow Rate 2 12/12/24 19:15 BMI result Body Mass Index 25.7 Const: Other: Middle-aged male lying in bed in distress Neck supple, no JVD Regular rate and rhythm, S1-S2 heard Regular breath sounds bilaterally, no wheezing or crackles appreciated Abdomen with mild distention, no tenderness, no guarding Bilateral improved scrotal swelling Patient is awake, alert and oriented to self, place, time and person ; no focal motor deficit Psych: Normal mood DS: Data Data Completed and Pending Labs on day of discharge: Laboratory Results - last 24 hr 12/14/24 12/14/24 12/14/24 14:54 17:59 23:53 Creatinine Estim Creat Clear Calc Estimated GFR POC Glucose 143 H 165 H Random Vancomycin 16.1 12/15/24 12/15/24 12/15/24 05:53 06:26 11:32 Creatinine 1.40 Estim Creat Clear Calc 63.8 Estimated GFR 54 POC Glucose 195 H 258 H Random Vancomycin Imaging CT scan - abdomen: Radiologist's impression: ITS Impressions Scrotum Ultrasound 12/11/24 10:30 IMPRESSION: Probable peristalsing bowel loops within the right scrotum suggesting a hernia. Multiloculated mildly complex cyst in the right scrotum measuring 8.9 x 5.5 x 9.7 cm the could represent spermatocele or septated chronic hydrocele. Infection is not ruled out. Small left hydrocele and cystlike structure measuring 4.0 x 8.1 x 2.8 cm could represent spermatocele, loculated hydrocele, infection is not ruled out. There is scrotal skin thickening, greater on the right, consistent with inflammation, edema, and/or infection. Electronically signed by: Dimitri Huber MD 12/11/2024 11:27 AM EDT Scrotum Ultrasound 12/11/24 10:30 IMPRESSION: Probable peristalsing bowel loops within the right scrotum suggesting a hernia. Multiloculated mildly complex cyst in the right scrotum measuring 8.9 x 5.5 x 9.7 cm the could represent spermatocele or septated chronic hydrocele. Infection is not ruled out. Small left hydrocele and cystlike structure measuring 4.0 x 8.1 x 2.8 cm could represent spermatocele, loculated hydrocele, infection is not ruled out. There is scrotal skin thickening, greater on the right, consistent with inflammation, edema, and/or infection. Electronically signed by: Dimitri Huber MD 12/11/2024 11:27 AM EDT RP Abdomen/Pelvis CT 12/11/24 11:45 IMPRESSION: There is an indirect hernia involving ileum into the right scrotum resulting in a partial low-grade obstruction. Cirrhosis and portal hypertension: There is a small nodular liver with moderate ascites. There is recanalization of the umbilical vein and esophageal varicosities. There is also splenomegaly and splenic vein collaterals. Ascites tracks into the scrotum bilaterally. Vague patchy hypodensity in the right kidney, correlate for signs symptoms of pyelonephritis. Colonic mucosa appears mildly prominent. This probably secondary to cirrhosis, ascites, and hypoalbuminemia. Correlate for signs symptoms of colitis. Fleischner guidelines were followed. Electronically signed by: Dimitri Huber MD 12/11/2024 01:22 PM EDT RP Discharge Plan Discharge Anticipated Discharge Date/Time: 12/15/24 14:00 Patient Disposition: Home, Self-Care Discharge Diagnosis: Incarcerated right inguinal hernia with hydrocele Referrals: Physician,Unknown J [Primary Care Provider, Medical] - 1 Week Discharge Medications: New doxycycline hyclate 100 mg capsule 100 mg PO BID 7 Days Qty: 14 0RF Continued insulin glargine [Basaglar KwikPen U-100 Insulin] 100 unit/mL (3 mL) insulin pen subcut metformin 500 mg tablet 500 mg PO BID furosemide 40 mg tablet 40 mg PO BID melatonin 3 mg Tablet 3 mg PO BEDTIME PRN (Reason: Sleep) alum-mag hydroxide-simeth 200-200-20 mg/5 mL Suspension 5 ml PO 5XD PRN (Reason: Acid Indigestion) Rx Instructions: administer between meals and at bedtime epinephrine 0.3 mg/0.3 mL auto-injector 0.3 ml IM BID PRN (Reason: Allergic Reaction) Discharge Orders: Discharge Order (Routine); Ordered 12/15/24 Ordered By: Marian Lopez Diet: Advance to usual diet Activity on Discharge: As tolerated Stand Alone Forms: Patient Portal Discharge page Print Language: Khmer Care Plan Goals: Follow-up with PCP within 1 week Follow-up with general surgery for repair of right inguinal hernia Follow-up with urology Health Concerns: Right inguinal hernia Hydrocele Alcoholic liver cirrhosis Plan of Treatment: With doxycycline twice daily x7 days Assessment: As above
--- NOTE | 2024-12-15 14:15 | MHC.CM.PN ---
DP: PT HAS BEEN MEDICALLY CLEARED FOR DC HOME, NO SERVICES. PT HAS CAR IN LOT AND FEELS HE IS OK TO TRANSPORT SELF
[2024-12-15] MEDS: Lidocaine HCl 1 % MPF 5 ML VIAL SUBCUT (14:47)
[2024-12-15 16:00] VITALS: BP 120/63; PULSE 84; RESP 18; TEMP 37; O2SAT 96
--- NOTE | 2024-12-15 16:21 | HE.PHANOTE ---
RE COURT Patients level came back this evening at 15.8. Will continue with current dose of 750 mg Q12H. Next level to be pulled 12/17 @1500
== END 2024-12-15 16:31 | disposition home or self-care (01) | DRG 394 ==
LOC: HO.ED 16:03 → HO.EDOVER 18:33 → HO.S3 19:08
PROVIDERS: Physician Assistant Surgical; Surgery; Admitting Provider Student in an Organized Health Care Education/Training Program; Emergency Provider Emergency Medicine; Visit Provider Student in an Organized Health Care Education/Training Program
DX: K40.30 Unilateral inguinal hernia, with obstruction, without gangrene, not specified as recurrent (principal); D61.818 Other pancytopenia; E87.21 Acute metabolic acidosis; Z76.82 Awaiting organ transplant status; K70.30 Alcoholic cirrhosis of liver without ascites; E87.6 Hypokalemia; F10.91 Alcohol use, unspecified, in remission; N43.3 Hydrocele, unspecified; E83.42 Hypomagnesemia; E11.9 Type 2 diabetes mellitus without complications; Z79.4 Long term (current) use of insulin; Z79.84 Long term (current) use of oral hypoglycemic drugs; Z79.899 Other long term (current) drug therapy
CPT/HCPCS: 10030; 36415; 74177; 76870; 80048; 80053; 80202; 81001; 82140; 82248; 82565; 82947; 83605; 83690; 83735; 84132; 84484; 85025; 85610; 87086; 87088; 87186; 93005; 93975; 99285; J1171; J1938; J1956; J2003; J2270; J2405; J2704; J3373; J3374; J3475; J3480; J7120; Q9967

== ENCOUNTER → 2024-12-11 10:30 | Outpatient (BNV) | payer OTHER, SELFPAY | PROVIDERS: Emergency Provider Emergency Medicine; Visit Provider Radiology Diagnostic Radiology | DX: K74.60 Unspecified cirrhosis of liver (principal); N50.3 Cyst of epididymis | CPT/HCPCS: 74177; 76870 ==

== ENCOUNTER → 2024-12-11 10:47 | Outpatient (BNV) | payer OTHER, SELFPAY | PROVIDERS: Emergency Provider Emergency Medicine; Visit Provider Student in an Organized Health Care Education/Training Program | DX: K40.90 Unilateral inguinal hernia, without obstruction or gangrene, not specified as recurrent (principal); L72.9 Follicular cyst of the skin and subcutaneous tissue, unspecified; E87.6 Hypokalemia | CPT/HCPCS: 99223; 99232 ==

== ENCOUNTER → 2024-12-11 13:12 | Outpatient (BNV) | payer OTHER, SELFPAY | PROVIDERS: Emergency Provider Emergency Medicine; Visit Provider Internal Medicine Cardiovascular Disease | DX: I45.10 Unspecified right bundle-branch block (principal) | CPT/HCPCS: 93010 ==

== ENCOUNTER 2024-12-11 14:44 | Outpatient (BNV) | payer OTHER, SELFPAY | END 2024-12-14 15:52 | PROVIDERS: Admitting Provider Student in an Organized Health Care Education/Training Program; Emergency Provider Emergency Medicine | DX: N50.82 Scrotal pain (principal) | CPT/HCPCS: 10030 ==

== ENCOUNTER 2024-12-11 14:44 | Outpatient (BNV) | payer OTHER, SELFPAY | END 2024-12-15 12:31 | PROVIDERS: Admitting Provider Student in an Organized Health Care Education/Training Program; Emergency Provider Emergency Medicine | DX: N43.3 Hydrocele, unspecified (principal) | CPT/HCPCS: 10030 ==

== ENCOUNTER → 2024-12-11 14:44 | Outpatient (BNV) | payer OTHER, SELFPAY | PROVIDERS: Admitting Provider Student in an Organized Health Care Education/Training Program; Emergency Provider Emergency Medicine; Visit Provider Surgery | DX: K40.30 Unilateral inguinal hernia, with obstruction, without gangrene, not specified as recurrent (principal); K70.30 Alcoholic cirrhosis of liver without ascites; N43.3 Hydrocele, unspecified | CPT/HCPCS: 49507; 99222; 99232 ==

== ENCOUNTER → 2024-12-11 14:44 | Outpatient (BNV) | payer OTHER, SELFPAY | PROVIDERS: Admitting Provider Student in an Organized Health Care Education/Training Program; Emergency Provider Emergency Medicine; Visit Provider Urology | DX: N43.3 Hydrocele, unspecified (principal); K40.90 Unilateral inguinal hernia, without obstruction or gangrene, not specified as recurrent; R10.31 Right lower quadrant pain; N50.89 Other specified disorders of the male genital organs | CPT/HCPCS: 99222 ==